=== PATIENT | female | born 1995 | race Caucasian/White ===

== ENCOUNTER 2020-09-18 14:46 | Emergency (ER) | payer OTHER ==
[~2020-09-18] VITALS: Ht 165.1 cm; Wt 61.4 kg
[2020-09-18 17:52] LABS: HEMATOCRIT 41.4 % (36.0-47.0); HEMOGLOBIN 13.9 g/dl (12.0-15.5); MEAN CORPUSCULAR HEMOGLOBIN 29.1 pg (27.0-33.0); MEAN CORPUSCULAR HGB CONC 33.6 g/dl (32.0-36.5); MEAN CORPUSCULAR VOLUME 86.8 fl (80.0-96.0); PLATELET COUNT, AUTOMATED 355 10^3/uL (150-450); RED BLOOD COUNT 4.77 10^6/uL (4.00-5.40); WHITE BLOOD COUNT 7.5 10^3/uL (4.0-10.0)
[2020-09-18 18:15] LABS: HCG, SERUM QUALITATIVE NEGATIVE (NEGATIVE)
[2020-09-18 18:25] LABS: ACETAMINOPHEN LEVEL < 2.0 UG/ML (10.0-30.0); ALBUMIN 3.9 GM/DL (3.2-5.2); ALT/SGPT 23 U/L (12-78); BILIRUBIN,DIRECT 0.4 MG/DL (0.0-0.2); BLOOD UREA NITROGEN 9 MG/DL (7-18); CALCIUM LEVEL 9.5 MG/DL (8.5-10.1); CARBON DIOXIDE LEVEL 27 MEQ/L (21-32); CHLORIDE LEVEL 102 MEQ/L (98-107); ETHYL ALCOHOL (ETHANOL) < 0.003 % (0.000-0.010); GLOMERULAR FILTRATION RATE > 60.0 (>60); GLUCOSE, FASTING 80 MG/DL (70-100); POTASSIUM SERUM 4.2 MEQ/L (3.5-5.1); SALICYLATE LEVEL < 1.7 MG/DL (5.0-30.0); SODIUM LEVEL 137 MEQ/L (136-145); TOTAL PROTEIN 7.2 GM/DL (6.4-8.2)
[2020-09-18 19:23] LABS: AMPHETAMINES LEVEL URINE NEGATIVE (NEGATIVE); BARBITURATES URINE NEGATIVE (NEGATIVE); BENZODIAZEPINES URINE NEGATIVE (NEGATIVE); CANNABINOIDS URINE NEGATIVE (NEGATIVE); COCAINE METABOLITE URINE NEGATIVE (NEGATIVE); METHADONE URINE NEGATIVE (NEGATIVE); OPIATES URINE NEGATIVE (NEGATIVE); PHENCYCLIDINE URINE NEGATIVE (NEGATIVE)
[2020-09-19 15:39] LABS: RSV AMPLIFICATION NEGATIVE (NEGATIVE)
[2020-09-20 17:36] VITALS: BP 117/59
--- NOTE | 2020-09-20 19:43 | ECGEPIP ---
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
== END 2020-09-20 17:40 | disposition short-term general hospital (02) ==
LOC: M ED 14:46
DX: F32.9 Major depressive disorder, single episode, unspecified (principal); R45.851 Suicidal ideations; F17.200 Nicotine dependence, unspecified, uncomplicated; F17.290 Nicotine dependence, other tobacco product, uncomplicated

== ENCOUNTER 2020-10-30 08:18 | Inpatient (IN) | payer OTHER ==
[2020-10-30] VITALS (40 sets, daily range): BP systolic 71–121; BP diastolic 38–66
[~2020-10-30] VITALS: Ht 165.1 cm; Wt 61.7 kg
[2020-10-30] MEDS ORDERED: SUCCINYLCHOLINE INJ 200 MG/10 ML VIAL (J0330) IV ONE (08:45)
[2020-10-30] MEDS ORDERED: ETOMIDATE INJ 20MG/10ML VIAL IV ONE (08:45)
[2020-10-30] MEDS ORDERED: propofoL 1,000 MG in IV 1 EA IV SCH (08:45)
[2020-10-30] MEDS ORDERED: CHARCOAL ACTIVATED LIQUID 25 GM/120 ML BTL NG ONE (08:45)
[2020-10-30] MEDS ORDERED: ROCURONIUM BROMIDE 50 MG/5 ML VIAL IV ONE (08:45)
[2020-10-30] MEDS ORDERED: NS 1,000 ML IV SCH (09:00)
[2020-10-30] MEDS: MIDAZOLAM 5MG/ML 1ML VIAL (J2250 PER 1MG) IV PRN ×2 (09:22→11:00)
--- NOTE | 2020-10-30 09:23 | REP ---
INDICATION: POST INTUBATION TUBE PLACEMENT. COMPARISON: None. TECHNIQUE: Single portable AP view of the chest was performed. FINDINGS: There is no acute infiltrate. The heart and mediastinum are unremarkable. Endotracheal tube tip is 3.3 cm above the garo. Nasogastric tube is visualized, the side port is in the fundus of the stomach. IMPRESSION: No acute pulmonary disease.Endotracheal tube and nasogastric tube as above. <Electronically signed by Lino Cruz > 10/30/20 [id number]
[2020-10-30 09:30] LABS: BASO # 0.1 10^3/uL (0.0-0.2); BASO % 0.4 % (0.0-1.0); EOS % 0.1 % (0.0-3.0); HEMATOCRIT 39.9 % (36.0-47.0); HEMOGLOBIN 13.2 g/dl (12.0-15.5); LYMPH # 3.3 10^3/uL (1.5-5.0); LYMPH % 11.3 % (24.0-44.0); MEAN CORPUSCULAR HEMOGLOBIN 29.1 pg (27.0-33.0); MEAN CORPUSCULAR HGB CONC 33.1 g/dl (32.0-36.5); MEAN CORPUSCULAR VOLUME 87.9 fl (80.0-96.0); MONO # 1.4 10^3/uL (0.0-0.8); MONO % 4.9 % (2.0-8.0); NEUTROPHILS % 82.4 % (36.0-66.0); PLATELET COUNT, AUTOMATED 444 10^3/uL (150-450); RED BLOOD COUNT 4.54 10^6/uL (4.00-5.40); WHITE BLOOD COUNT 29.1 10^3/uL (4.0-10.0)
[2020-10-30] MEDS ORDERED: REFRIGERATOR IV KEYS XX PRN (09:30)
[2020-10-30] MEDS ORDERED: MED REC COMMENT (09:39)
[2020-10-30] MEDS ORDERED: LEXA1TAB PO (09:39)
[2020-10-30] MEDS ORDERED: HYDR-643 PO (09:39)
[2020-10-30] MEDS ORDERED: YAZ1TAB PO (09:39)
[2020-10-30] MEDS ORDERED: TRAZ-252 PO (09:39)
[2020-10-30 09:53] LABS: HCG, SERUM QUALITATIVE NEGATIVE (NEGATIVE)
[2020-10-30 09:54] LABS: AMPHETAMINES LEVEL URINE NEGATIVE (NEGATIVE); BARBITURATES URINE NEGATIVE (NEGATIVE); BENZODIAZEPINES URINE NEGATIVE (NEGATIVE); CANNABINOIDS URINE NEGATIVE (NEGATIVE); COCAINE METABOLITE URINE NEGATIVE (NEGATIVE); METHADONE URINE NEGATIVE (NEGATIVE); OPIATES URINE NEGATIVE (NEGATIVE); PHENCYCLIDINE URINE NEGATIVE (NEGATIVE)
[2020-10-30 10:00] LABS: RSV AMPLIFICATION NEGATIVE (NEGATIVE)
[2020-10-30 10:01] LABS: ACETAMINOPHEN LEVEL 6.2 UG/ML (10.0-30.0); ALT/SGPT 16 U/L (12-78); BILIRUBIN,DIRECT < 0.1 MG/DL (0.0-0.2); BILIRUBIN,TOTAL 1.4 MG/DL (0.2-1.0); BLOOD UREA NITROGEN 9 MG/DL (7-18); CALCIUM LEVEL 8.1 MG/DL (8.5-10.1); CARBON DIOXIDE LEVEL 24 MEQ/L (21-32); CHLORIDE LEVEL 109 MEQ/L (98-107); CPK CREATINE PHOSPHOKINASE 70 U/L (26-192); CREATININE FOR GFR 1.16 MG/DL (0.55-1.30); ETHYL ALCOHOL (ETHANOL) 0.187 % (0.000-0.010); GLOMERULAR FILTRATION RATE > 60.0 (>60); GLUCOSE, FASTING 157 MG/DL (70-100); POTASSIUM SERUM 3.8 MEQ/L (3.5-5.1); SALICYLATE LEVEL < 1.7 MG/DL (5.0-30.0); SODIUM LEVEL 146 MEQ/L (136-145); TOTAL PROTEIN 6.4 GM/DL (6.4-8.2)
[2020-10-30 10:25] LABS: ABG BASE EXCESS -7.7 (-2.0-2.0); ABG HCO3 16.5 MEQ/L (22.0-26.0); ABG PARTIAL PRESSURE CO2 30.1 mmHg (35.0-45.0); ABG PARTIAL PRESSURE O2 191.7 mmHg (75.0-100.0); ABG STANDARD HCO3 18.3 MEQ/L (22.0-26.0); ABG TOTAL CO2 17.5 MEQ/L (22.0-29.0); ABG pH (ARTERIAL) 7.358 UNITS (7.350-7.450)
[2020-10-30] MEDS: D5W/LR 1,000 ML IV SCH ×2 (10:25→17:57)
[2020-10-30] MEDS: MIDAZOLAM HCL 100 MG in D5W 80 ML IV SCH (10:27)
[2020-10-30 11:39] LABS: PROLACTIN 133.6 NG/ML
[2020-10-30] MEDS ORDERED: MIDAZOLAM INJ 2MG/2ML VIAL (J2250 PER 1MG) IV PRN (12:35)
[2020-10-30] MEDS ORDERED: AMPICILLIN SOD/SULBACTAM SOD 1.5 GM in D5W MINI-BAG PLUS 50 ML IV SCH (13:10)
[2020-10-30] MEDS: CHLORHEXIDINE GLUCONATE 0.12 % 15ML UDC (PERIDEX ORAL RINSE) MT SCH ×2 (13:53→20:46)
[2020-10-30] MEDS: ENOXAPARIN 40MG/0.4ML SYRINGE (J1650 PER 10MG) SC SCH (13:53)
[2020-10-30] MEDS: PANTOPRAZOLE 40MG VIAL (C9113 PER 1) IV SCH (13:53)
[2020-10-30] MEDS ORDERED: NS 1,000 ML IV ONE (14:35)
[2020-10-30] MEDS ORDERED: MAG SULF 1GM/100ML (MAG RUN) 1 GM in IV 1 EA IV ONE ×2 (17:00→20:00)
--- NOTE | 2020-10-30 18:22 | REPVR ---
PROCEDURE INFORMATION: Exam: CT Head Without Contrast Exam date and time: 10/30/2020 5:37 PM Age: 25 years old Clinical indication: Altered mental status/memory loss; Additional info: Altered metnal stauts TECHNIQUE: Imaging protocol: Computed tomography of the head without contrast. Axial and coronal reformatted images were created and reviewed. Radiation optimization: All CT scans at this facility use at least one of these dose optimization techniques: automated exposure control; mA and/or kV adjustment per patient size (includes targeted exams where dose is matched to clinical indication); or iterative reconstruction. COMPARISON: No relevant prior studies available. FINDINGS: Brain: No CT evidence of acute intracranial hemorrhage or acute territorial infarction. No significant mass effect or midline shift. Basal cisterns patent. Cerebral ventricles: Normal in size and configuration. Paranasal sinuses: Mild ethmoid and right maxillary sinus mucosal thickening. Dependent fluid in the left maxillary sinus. Minimal dependent fluid in the sphenoid sinuses. Mastoid air cells: Grossly unremarkable. Bones/joints: No acute osseous abnormality. Soft tissues: Grossly unremarkable. IMPRESSION: 1. No CT evidence of acute intracranial pathology. 2. Additional findings, as above. Electronically signed by: Emery Merlos On 10/30/2020 18:22:23 PM
--- NOTE | 2020-10-30 18:25 | REPVR ---
PROCEDURE INFORMATION: Exam: CT Cervical Spine Without Contrast Exam date and time: 10/30/2020 5:37 PM Age: 25 years old Clinical indication: Other: AMS; Additional info: Altered metnal stauts TECHNIQUE: Imaging protocol: Computed tomography images of the cervical spine without contrast. Axial, coronal and sagittal reformatted images were created and reviewed. Radiation optimization: All CT scans at this facility use at least one of these dose optimization techniques: automated exposure control; mA and/or kV adjustment per patient size (includes targeted exams where dose is matched to clinical indication); or iterative reconstruction. COMPARISON: CO PORTABLE CHEST X-RAY 10/30/2020 9:01 AM FINDINGS: Bones/joints: Slight reversal of the normal cervical lordosis. No CT evidence of acute fracture, dislocation or subluxation. Alignment anatomic. Vertebral body heights maintained. Discs/Spinal canal/Neural foramina: Intervertebral disc spaces preserved. No significant spinal canal or neural foraminal stenosis. Lungs: Grossly unremarkable. Soft tissues: Grossly unremarkable. IMPRESSION: 1. No CT evidence of acute cervical spine traumatic injury. 2. Additional findings, as above. Electronically signed by: Emery Merlos On 10/30/2020 18:25:27 PM
[2020-10-30] MEDS: AMPICILLIN SOD/SULBACTAM SOD 3 GM in D5W MINI-BAG PLUS 100 ML IV SCH ×2 (18:35→22:12)
[2020-10-30 18:50] LABS: INR 1.24; PROTHROMBIN TIME 15.9 SECONDS (12.5-14.3)
[2020-10-30] MEDS ORDERED: NS 250 ML IV ONE (18:55)
[2020-10-30 19:26] LABS: ACETAMINOPHEN LEVEL 6.8 UG/ML (10.0-30.0); ALBUMIN 3.2 GM/DL (3.2-5.2); ALT/SGPT 15 U/L (12-78); BILIRUBIN,TOTAL 2.7 MG/DL (0.2-1.0); BLOOD UREA NITROGEN 8 MG/DL (7-18); CALCIUM LEVEL 7.3 MG/DL (8.5-10.1); CARBON DIOXIDE LEVEL 21 MEQ/L (21-32); CHLORIDE LEVEL 116 MEQ/L (98-107); CPK CREATINE PHOSPHOKINASE 75 U/L (26-192); CREATININE FOR GFR 0.92 MG/DL (0.55-1.30); GLOMERULAR FILTRATION RATE > 60.0 (>60); GLUCOSE, FASTING 149 MG/DL (70-100); MAGNESIUM LEVEL 1.7 MG/DL (1.8-2.4); PHOSPHORUS LEVEL 2.3 MG/DL (2.5-4.9); POTASSIUM SERUM 3.9 MEQ/L (3.5-5.1); SODIUM LEVEL 146 MEQ/L (136-145); TOTAL PROTEIN 5.2 GM/DL (6.4-8.2)
--- NOTE | 2020-10-30 21:12 | ECGEPIP ---
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
--- NOTE | 2020-10-30 22:05 | HPE ---
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 ER for attempted suicide with drug overdose. Patient was recently prescribed new medications including trazadone and hydroxzyzine to take on top of her Escitalopram for better control of her anxiety and depression. This morning, patient did not show up to her morning PT on [place] and a fellow officer was sent to check on her but could not open her door and thereafter the Fire department was called to the scene to get access inside her apartment. She was found down laying in her own vomitus with empty pill bottles, as well as an alcohol bottle next to her. On arrival to the ER, she was encephalopathic, tachycardic and severely agitated, but was able to maintain a good blood pressure initially. Her pill bottles included trazadone (7 days worth) and hydroxyzine (21 pills total), and Escitalopram, all of which were empty. The tylenol bottle, however, was relatively full. Her initial Utox showed elevated ethyl alcohol and acetaminophen level of 6.2 and EKG shows a prolonged QTc interval. Poison control was called and recommended activated charcoal and 2g Mg sulfate, but the latter was not received. Patient became more agitated, had sluggish and constricted pupils, and her breathing became irregular and susequently intubated for acute respiratory failure and was started on propofol for sedation, intially at 14mcg but was titrated up to properly sedate her. She did experience hypotension thereafter with a low of SBP 80. She was given 2L NS boluses. REVIEW OF SYSTEMS: Unobtainable due to intubation status. PAST MEDICAL HISTORY: 1. Major depression with a history of suicide attempt. 2. Anxiety. PAST SURGICAL HISTORY: Unobtainable due to intubation status SOCIAL HISTORY: Unobtainable due to intubation status FAMILY HISTORY:Unobtainable due to intubation status HOME MEDICATIONS: 1. Escitalopram 10 mg p.o. daily. 2. Hydroxyzine 10 mg p.o. t.i.d. p.r.n. for anxiety. 3. Trazodone 50 mg p.o. q. h.s. 4. Ethinylestradiol/drospirenone. PHYSICAL EXAMINATION: VITAL SIGNS: Temperature 98.8, blood pressure 118/61, MAP of 80. She is satting 97% on 100% FiO2 on vent mode volume assist control. ABG: PH 7.358/30.1/191.7. GENERAL: The patient is a thin adult female resting comfortably in bed without any acute distress. She is mechanically ventilated and sedated on propofol. She does have residual vomitus seen in her hair and around her lips. NEUROLOGIC: No signs of tremor, fasciculations, or seizure activity. She does have spontaneous eye movements. HEENT: Head is atraumatic. Pupils are constricted, but equal and reactive to light. ET tube is 22.5 cm at the lip. OG tube in place draining bilious fluid. NECK: Supple with no tracheal deviation palpated. No significant thyromegaly or adenopathy appreciated. I was unable to appreciate JVD. CARDIAC: Sinus tachycardia. No murmurs, gallops, or rubs. No pedal edema appreciated. PULMONARY: The patient does have coarse ventilator sounds with symmetric chest expansion. I did not appreciate any rales, rhonchi, or wheezing. No retractions or accessory muscle use. ABDOMEN: Soft, nontender, and nondistended with normal bowel sounds. No significant palpitations masses or hernia. No organomegaly. EXTREMITIES: No bruising, joint effusions, fractures, or clubbing appreciated. Peripheral pulses are present 2+. LABORATORY DATA: POC glucose 162, sodium 145, potassium 3.5, chloride 104, BUN 8, creatinine 1.4, ionized calcium 4.0. POC pH 7.33/38.2/191. Repeat ABG shows pH 7.36/30.1/191.7. White count 29.1, H&H 13.2/39.9, platelets 444,000. Urine toxicology shows acetaminophen level initial 6.2. Ethyl alcohol level of 0.19. Respiratory panel within normal limits. IMAGING DATA: Chest x-ray with no acute pulmonary disease. ET tube 3.3 cm above the garo and OG tube is visualized in the fundus of the stomach. 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 ER for again attempted suicide with drug overdose. Patient was recently prescribed new medications including trazadone and hydroxzyzine to take on top of her Escitalopram for better control of her anxiety and depression. She was found down laying in her own vomitus with empty pill bottles (including trazadone, hydroxyzine, escitalopram), as well as an alcohol bottle next to her. Her initial Utox showed elevated ethyl alcohol and abnormal acetaminophen level of 6.2 and initial EKG showed prolonged QTc interval and poison control was contacted and recommended activated charcoal and mag sulfate. Patient also had altered mental status, agitation and acute respiratory failure requiring intubation and sedation with propofol, initially at 14mcg but had to be increased to properly sedate her. She did experience briefly episodes of hypotension shortly after being sedated and along with a mild JAMIE, she was given 2 L boluses of NS. Critical care was called to admit patient to the ICU for further mgmt of her care. NEUROLOGIC: The patient is mechanically ventilated and sedated, initially on propofol but experienced hypotension. Will D/C propofol and start versed gtt and as PRN for sedation. No signs of tremors, fasciculation, or seizures activities. Her pupils are constricted but symmetric and reactive to light. Her initial lactate is high and due to being found down and altered, will order a prolactin level to r/o generalized seizures. She was found down in her own vomitus, but it was unclear if patient hit her head or not. Will order for a CT head and C spine w/o contrast to r/o intracranial bleed and fractures. Will monitor for other complications such as serotonin syndrome in the setting of drug overdose with an SSRI. There is no muscle rigidity with passive range of motion testing. We will continue to monitor closely and will order cyproheptadine if patient develops serotonin syndrome. Will place her on seizure precautions CARDIAC: Patient was initially normotensive but experienced episodes of hypotension after sedation with propofol, intially at 14mcg but increased to properly sedate her. Currently, s/p 2L boluses of NS then will switch to to D5 LR for maintenance fluid. Will D/C propofol and start Versed gtt and as PRN for sedation. We will continue to monitor her blood pressure closely and give NS boluses if needed. Also noted on her Initial EKG was a prolonged QTc level of 548 in the setting of overdosing on QT prolonging drugs (Escitalopram, Hydroxyzine and Trazadone). Will order for q4h serial EKG monitoring her QTc levels and if levels continue to be in the high 500s, will change to q2h serial EKG. As per recommendation from poison control, will give 1g of mg sulfate to prevent ventricular arrhythmia and/or supraventricular arrhythmias. Will avoid other QT prolonging drugs including antibiotics (macrolides, flouroquinolones) and antiemetics (zofran). PULMONARY: Patient was found in her own vomitus and there's a high clinical suspicion for aspiration and acute aspiration pneumonitis. She's been afebrile; however, our threshold to start prophlaytic antibiotic for acute aspiration pneumonitis with the intent of preventing development of aspiration pneumonia is low and we will start her on on it if her temperature reaches > 99.5 and/or drops below 96F. Chest radiograph did not show any acute findings and her blood gas does not show acidosis. Will continue with vent bundle care with chlorhexidine mouth wash and head of bed elevated > 30 deg and daily ABGs and CXR while intubated. She was initially on Volume AC mode and switched to PRVC with TV 16 PEEP 5 respiration of 16 and FIO2 35 % saturating at 97%. Her ET tube is in appropriate position at 22.5 cm at the lip and in appropriate position on radiograph. Her OG tube is also in the correct position coursing below the left hemidiaphragm. NEPHROLOGY: : Pt initially had an JAMIE that has now resolved. She's S/p 2L NS boluses in ED and continued on D5 LR for maintenance. We will continue to monitor her electrolytes with a repeat BMP today as well as a Mg and phosp, CPK level. Will replete as necessary. She has a guzman in place and has good urine output. INFECTIOUS DISEASE: Patient was afebrile. She was found in her own vomitus and she also vomited while in the ED and there's a high suspicion for aspiration and developed acute aspiration pneumonitis, although initial Chest radiograph did not show any abnormalities. Will continue to monitor and add antibotic coverage as mentioned above if temp > 99.5 and/or below 96F. She had an elevated lactate, which could be 2/2 to drug overdose or a component of sepsis. will trend her lactate levels and will order blood cultures and sputum gram stain and culture as well as urine with reflex to culture. Guzman in place draining urine free of pus and/or debris. OG tube in place to low intermittent sunctioning. GASTROENTEROLOGY/ENDOCRINE: The patient has hx of suicidal ideation by drug overdose. She ingested trazadone hydroxyzine, escitalopram and tylenol along with alcohol. Initial utox shows elevated ethyl etoh and abnormal acetaminophen level. Will repeat a 4 hour acetaminophen level and closely monitor her liver function. Will order coags. Continue Protonix for GI prophlyaxis while intubated. Her blood sugar is on higher side will monitor and add SSI if needed DEEP VEIN THROMBOSIS (DVT) PROPHYLAXIS: Lovenox. CODE STATUS: FULL CODE. Total critical care time spent not including any procedures approx 1 hr and 55 mins I, Mora Mackey, have conducted an independent examination and history of the patient and agree with the plan as detailed by the resident above. FRANKOD
--- NOTE | 2020-10-30 22:38 | ECGEPIP ---
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 No remarkable changes but slower heart rate Electronically Signed on 10-30-2020 22:38:05 EDT by Linus Liriano
--- NOTE | 2020-10-30 22:42 | ECGEPIP ---
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
[2020-10-30] MEDS ORDERED: POTASSIUM PHOSPHATE INJ 18 MMOL in D5W 250 ML IV ONE (23:00)
[2020-10-31] VITALS (28 sets, daily range): BP systolic 86–125; BP diastolic 49–80
[2020-10-31] MEDS: AMPICILLIN SOD/SULBACTAM SOD 3 GM in D5W MINI-BAG PLUS 100 ML IV SCH ×4 (04:11→21:14)
[2020-10-31] MEDS: D5W/LR 1,000 ML IV SCH (04:11)
[2020-10-31 05:17] LABS: BASO # 0.1 10^3/uL (0.0-0.2); BASO % 0.3 % (0.0-1.0); EOS % 0.1 % (0.0-3.0); HEMOGLOBIN 10.6 g/dl (12.0-15.5); LYMPH # 2.5 10^3/uL (1.5-5.0); LYMPH % 14.2 % (24.0-44.0); MEAN CORPUSCULAR HEMOGLOBIN 28.6 pg (27.0-33.0); MEAN CORPUSCULAR HGB CONC 33.1 g/dl (32.0-36.5); MEAN CORPUSCULAR VOLUME 86.3 fl (80.0-96.0); MONO # 0.9 10^3/uL (0.0-0.8); MONO % 5.2 % (2.0-8.0); NEUTROPHILS # 13.9 10^3/uL (1.5-8.5); NEUTROPHILS % 79.8 % (36.0-66.0); RED BLOOD COUNT 3.71 10^6/uL (4.00-5.40); WHITE BLOOD COUNT 17.4 10^3/uL (4.0-10.0)
[2020-10-31 05:31] LABS: ABG BASE EXCESS -1.4 (-2.0-2.0); ABG HCO3 21.8 MEQ/L (22.0-26.0); ABG PARTIAL PRESSURE CO2 31.6 mmHg (35.0-45.0); ABG PARTIAL PRESSURE O2 155.4 mmHg (75.0-100.0); ABG STANDARD HCO3 23.4 MEQ/L (22.0-26.0); ABG TOTAL CO2 22.8 MEQ/L (22.0-29.0); ABG pH (ARTERIAL) 7.457 UNITS (7.350-7.450)
[2020-10-31 05:40] LABS: ALT/SGPT 17 U/L (12-78); BILIRUBIN,TOTAL 1.7 MG/DL (0.2-1.0); BLOOD UREA NITROGEN 6 MG/DL (7-18); CALCIUM LEVEL 7.7 MG/DL (8.5-10.1); CARBON DIOXIDE LEVEL 24 MEQ/L (21-32); CHLORIDE LEVEL 113 MEQ/L (98-107); CREATININE FOR GFR 0.92 MG/DL (0.55-1.30); GLOMERULAR FILTRATION RATE > 60.0 (>60); GLUCOSE, FASTING 144 MG/DL (70-100); MAGNESIUM LEVEL 2.4 MG/DL (1.8-2.4); PHOSPHORUS LEVEL 2.8 MG/DL (2.5-4.9); PLATELET COUNT, AUTOMATED 278 10^3/uL (150-450); POTASSIUM SERUM 3.7 MEQ/L (3.5-5.1); SODIUM LEVEL 145 MEQ/L (136-145); TOTAL PROTEIN 5.1 GM/DL (6.4-8.2)
[2020-10-31] MEDS: MIDAZOLAM HCL 100 MG in D5W 80 ML IV SCH (07:45)
--- NOTE | 2020-10-31 08:11 | REP ---
INDICATION: intubated. COMPARISON: Comparison portable chest x-ray October 30, 2020. TECHNIQUE: Portable upright AP chest radiograph. FINDINGS: Endotracheal tube is seen in good position just at the level of the medial clavicles. NG tube enters the left upper quadrant. Monitoring electrodes and oxygen delivery tubing are seen. The lungs are well inflated and free of infiltrate. The pleural angles are sharp. Pulmonary vasculature is not increased.. IMPRESSION: Endotracheal and nasogastric tubes in good position. No acute cardiopulmonary abnormality.. <Electronically signed by Aquilino Hernandez > 10/31/20 0839
[2020-10-31 08:23] LABS: BILIRUBIN,DIRECT 0.1 MG/DL (0.0-0.2)
[2020-10-31] MEDS: PANTOPRAZOLE 40MG VIAL (C9113 PER 1) IV SCH (09:28)
[2020-10-31] MEDS: ENOXAPARIN 40MG/0.4ML SYRINGE (J1650 PER 10MG) SC SCH (09:28)
[2020-10-31] MEDS: CHLORHEXIDINE GLUCONATE 0.12 % 15ML UDC (PERIDEX ORAL RINSE) MT SCH (09:28)
--- NOTE | 2020-10-31 10:51 | CCN ---
CRITICAL CARE NOTE DATE: 10/31/2020 SUBJECTIVE: The patient was seen and examined this morning during bedside rounds. Yesterday afternoon, the patient had a few episodes of hypotension. She was given additional normal saline fluid bolus with appropriate response in her blood pressure. Her sedation was also weaned down as she was very well sedated on the versed drip and there was further improvement in her blood pressure. She did not require any vasopressor administration. Yesterday evening, the patient was also started on free water flushes via her OG tube and she was repleted with additional electrolytes. Overnight, there were no acute events. The patient did have hypothermia yesterday earlier and she was placed on a Ketty Hugger. Later on in the afternoon, the patient's temperature improved and she was off any warming blankets. This morning on sedation, the patient was responsive and following commands appropriately although still drowsy. She denies any pain currently. She has not had any evidence of any seizure activity overnight. She did not require any of her p.r.n. versed overnight. OBJECTIVE: Vitals: Temperature 98.6, pulse 67, respirations 17, blood pressure 103/66. O2 sat 97% on 30% FiO2, in 2.3 liters, out 1.5 liters. General: The patient is lying in bed intubated and on sedation. She is arousable and follows commands appropriately although still drowsy. No evidence of tremors and seizure activity. HEENT: Normocephalic, atraumatic. Pupils are responsive to light bilaterally. There is an ET tube and an OG tube in place. Neck: Supple. Trachea is midline. There is no palpable cervical adenopathy. No JVD noted. Cardiac: Regular rate and rhythm. Normal S-1, S-2. No appreciable murmurs. Pulmonary: Coarse ventilator breath sounds bilaterally with no significant wheezing, rales or rhonchi. Abdomen: Soft, nontender, nondistended. Positive bowel sounds present. Extremities: There is no significant edema in the bilateral lower extremities. Pulses are present. No obvious injuries. LABS: WBC trending down to 17.4, hemoglobin trending down 10.6. Glucose is 278. Chemistry: Sodium is 145, potassium 3.7. Chloride is 113. Bicarb is 24. BUN 6, creatinine 0.92. Glucose is 144. Calcium is 7.7. Magnesium is 2.4. T bili trending down to 1.7. Phos is 2.8. AST 18, ALT 17. Lactic acid trending down to 1.7. Prolactin level was 133.6. ABG: pH 7.457, pCO2 of 31.6, pO2 of 150.4. IMAGING: Chest x-ray this morning shows ET tube and OG tube in good position. There are no focal opacities or infiltrates. CT of head yesterday showed no acute intracranial pathology. CT of the cervical spine showed no evidence of traumatic injury. ASSESSMENT AND PLAN: Miss Case is a 25-year-old female with a history of depression and recent suicide attempt who presented with intentional drug overdose and suicide attempt. The patient was found to be encephalopathic as well as having obvious vomiting and agitation. She was intubated for acute respiratory failure and airway protection and transferred to the ICU for further management. 1. Neurologic. The patient has history of depression and was on medications for anxiety and depression which she had intentionally overdosed on in an attempted suicide. There was concern for a possible seizure with elevated lactate and a prolactin level was drawn which was elevated. Suspect she had a seizure in the setting of her acute intoxication. Her alcohol level was also positive on admission as well. She has not had any further evidence of seizure activity so we will continue to monitor with seizure precautions. Patient's head CT and C-spine did not show any evidence of acute bleed or fractures. Patient was on an SSRI. She does not appear to have serotonin syndrome currently but would avoid medications that contribute to serotonin syndrome. The patient was on versed for sedation as she had hypotension with propofol. Her sedation is on hold today for a weaning trial. With her suicide attempt, she will need to be on a one-to-one after she is extubated and psychiatry will need to be consulted. 2. Cardiac. Patient had episodes of hypotension yesterday likely in the setting of her sedation. With fluid resuscitation and change to versed, her blood pressure improved and she did not require any need for vasopressors. Patient did have some QTC prolongation in the setting of her acute intoxication. Patient did overdose on Escitalopram, hydroxyzine and trazodone. She otherwise has not had any acute events noted overnight on telemetry. We will continue monitoring her EKGS and will change to daily. Patient was given magnesium repletion yesterday and will continue to maintain electrolytes for magnesium above 2 and will continue to monitor and replete other electrolytes as well. We will avoid other QTC prolonging drugs. 3. Pulmonary. Patient with encephalopathy as well as vomiting. There was a high suspicion for aspiration. She was intubated and placed on mechanical ventilation for airway protection. Patient was hypothermic yesterday and with her leukocytosis, there was concern for possible aspiration pneumonia. Her CXR did not show any focal opacity but as they are portable films are unable to see very bases of lungs behind diaphragm. She was started on broad spectrum antibiotics with Unasyn. Her temperature improved and she has been off the Ketty Hugger overnight. Her leukocytosis has also improved. We will continue with Unasyn and can likely deescalate in the next day or two with clinical improvement to oral antibiotics to complete a 5 to 7 day course for aspiration pneumonia. We will continue with vent bundle care and chlorhexidine mouthwash with head of bed elevation and daily ABGs and check saturations while intubated. The patient will be placed on weaning trial for potential extubation today. She is somewhat still sedated and was apneic on pressor support. We will place her on SIMV and continue to assess for her appropriateness for extubation today. The patient did have lactic acidosis initially possibly secondary to seizure activity. With IV fluids, her lactic acid did trend down to normal. 4. Nephrology. The patient had JAMIE initially which improved with IV fluids. She was receiving D5 LR for maintenance as well as receiving free water flushes to her OG tube as she had a degree of hyperchloremia secondary to her normal saline fluids that she received. Patient's chloride has improved and her lactic acid has also trended down. Her renal function has also improved. Will DC IV fluids pending her extubation and would likely be able to tolerate p.o. once extubated. We will continue monitoring urine output and ins and outs. 5. GI/endocrine. Patient received activated charcoal in the ED for her acute drug overdose and ingestion. She was started on free water flushes overnight which she has been tolerating. If patient is not extubated today, I would start her on tube feeds. Patient did have trending Tylenol levels which were negative. Her liver function tests have been normal except for mild elevation in bilirubin which is also trending down. We will continue to monitor her finger stick glucose and start sliding scale coverage as needed. GI prophylaxis while intubated. DVT prophylaxis: Lovenox. Code Status: FULL CODE. Total critical care time spent not including procedures approximately 50 minutes. FRANKOD
[2020-10-31] MEDS ORDERED: POTASSIUM PHOSPHATE INJ 20 MMOL in D5W 250 ML IV ONE (11:00)
--- NOTE | 2020-10-31 17:42 | IPNPDOC ---
Date Seen The patient was seen on 10/31/20. Progress Note SUBJECTIVE: Ms. Monroe appears groggy this morning when I visited her in the ICU. She had been extubated 45 minutes prior to my visit and appeared tired. She is arousable to noise and opens her eyes when I say her name. She is able to answer a few of my questions but it is difficult to appreciate what she is saying. She has a sitter present in the room with her and she does not appear to be in any acute distress. I was able to attain a ROS via yes/no answers. She denies chest pain, shortness of breath, and abdominal pain. She told me that she was hungry when I asked her if she had an appetite. She has an oxygen saturation of 100% via aerosol mask with an Fi02 of 40. She is being transferred to the PCU from the ICU. OBJECTIVE PHYSICAL EXAMINATION: VITAL SIGNS: Please see below. GENERAL: Young adult female lying in bed in no acute distress. She is groggy but is able to follow simple commands HEENT: normocephalic, atraumatic, PERRLA, trachea is midline, mucous membranes are pink and moist, sclera non icteric. CARDIOVASCULAR: regular rate and rhythm, no murmurs, rubs, or gallops noted RESPIRATORY: Patient takes shallow breaths, no wheezes, rhonchi, or rales noted. ABDOMINAL: positive bowel sounds, soft, nontender to palpation in all four quadrants EXTREMITIES: no edema noted, capillary refill <2 seconds, no rashes or ulcerations. PSYCHOLOGICAL: patient is groggy but able to speak in short sentences LABORATORY DATA, IMAGING STUDIES, MICROBIOLOGY: Please see below. Chest x-ray 10/30/20: Impression: No acute pulmonary disease. Endotracheal tube and nasogastric tube as above. Cervical spine CT 10/30/20: Impression: 1. No CT evidence of acute cervical spine traumatic injury. 2. Additional findings, as above. Head CT 10/30/20: Impression: No CT evidence of acute intracranial pathology. Chest x-ray 10/31/20: Impression: Endotracheal and nasogastric tubes in good position. No acute cardiopulmonary abnormality. Echocardiogram: n/a DVT prophylaxis ordered?: Yes, continue lovenox ASSESSMENT AND PLAN: Ms. Monroe is a 25 year old female with pmhx anxiety, depression, and recent suicide attempt presented to the ED for suicide attempt with drug overdose. She was admitted to the ICU, intubated, and treated medically. PROBLEMS: #Intentional Drug overdose/ Suicide attempt -previous suicide attempt 09/18/20 -Positive ETOH level on admission-will keep on seizure precautions -Patient has history of depression and suicidal ideations -Will consult psych tomorrow when patient is more alert; she may qualify to be admitted to [facility] -Holding all psychiatric medications at this time -Continue one-on-one supervision #Suspected aspiration pneumonia -patient was found lying in vomitus -Elevated WBC 17.4 that is downtrending -Patient is afebrile -C/w Unasyn -Will likely transition to oral unasyn from IV in day or two. Patient should receive a total of 5-7 day course -chest x-ray results as above #Hypotension -Stable 111/70 -likely 2/2 to sedation with intubation -patient was given 2L fluid bolus in ICU with BP improvement #QT prolongation -likely 2/2 to acute intoxication with escitalopram, hydroxyzine, and trazodone while acutely intoxicated -c/w telemetry -c/w daily EKG monitoring -Holding all QT prolonging medications at this time. #Lactic acidosis -resolved, currently 1.7 -patient was given IV fluids #JAMIE -resolved, BUN: 6 Creatinine: 0.92 -will continue to monitor DVT prophylaxis: yes, continue lovenox DISPOSITION:Will continue to monitor patient for clinical improvement. She was extubated this morning. She was started on a liquid diet; will advance as tolerated. Will consult psychiatry tomorrow and continue patient on one-on-one. GME ATTESTATION My faculty preceptor for this patient encounter was physically present during the encounter and was fully available. All aspects of the patient interview, examination, medical decision making process, and medical care plan development were reviewed and approved by the faculty preceptor. The faculty preceptor is aware and concurs with the plan as stated in the body of this note and will attest to such by his/her cosignature. VS, I&O, 24H, Fishbone Vital Signs/I&O Vital Signs Date Time Temp Pulse Resp B/P (MAP) Pulse Ox O2 Delivery O2 Flow Rate FiO2 10/31/20 12:00 40 10/31/20 12:00 97.5 73 14 111/70 (84) 100 Aerosol Mask 10/30/20 12:25 15.0 I&O- Last 24 Hours up to 6 AM 10/31/20 06:00 Intake Total 4696.9 ml Output Total 2075 ml Balance 2621.9 ml Laboratory Data 24H LABS Laboratory Tests 2 10/30/20 18:16: Lactic Acid Level 1.6, Lactic Acid Followup at 4 Hours 1.7 10/30/20 18:17: Prothrombin Time 15.9H, Prothromb Time International Ratio 1.24, Activated Partial Thromboplast Time 20.0L, Anion Gap 9, Glomerular Filtration Rate > 60.0, Calcium Level 7.3L, Phosphorus Level 2.3L, Magnesium Level 1.7L, Total Bilirubin 2.7#H, Aspartate Amino Transf (AST/SGOT) 16, Alanine Aminotransferase (ALT/SGPT) 15, Alkaline Phosphatase 91, Total Creatine Kinase 75, Total Protein 5.2L, Albumin 3.2, Albumin/Globulin Ratio 1.6, Acetaminophen Level 6.8L 10/30/20 23:43: Bedside Glucose (Misc Panel) 149H 10/31/20 04:10: Urine Color YELLOW, Urine Appearance HAZY, Urine pH 5.0, Urine Specific [place] 1.034, Urine Protein 1+H, Urine Glucose (UA) NEGATIVE, Urine Ketones NEGATIVE, Urine Blood NEGATIVE, Urine Nitrite NEGATIVE, Urine Bilirubin 2+H, Urine Urobilinogen 2.0H, Urine Leukocyte Esterase 1+H, Urine WBC (Auto) 6H, Urine RBC (Auto) 3, Urine Hyaline Casts (Auto) 0, Urine Bacteria (Auto) NEGATIVE, Urine Squamous Epithelial Cells 1, Urine Sperm (Auto) 10/31/20 04:52: Immature Granulocyte % (Auto) 0.4, Neutrophils (%) (Auto) 79.8H, Lymphocytes (%) (Auto) 14.2L, Monocytes (%) (Auto) 5.2, Eosinophils (%) (Auto) 0.1, Basophils (%) (Auto) 0.3, Neutrophils # (Auto) 13.9H, Lymphocytes # (Auto) 2.5, Monocytes # (Auto) 0.9H, Eosinophils # (Auto) 0.0, Basophils # (Auto) 0.1, Nucleated Red Blood Cells % (auto) 0.0, Anion Gap 8, Glomerular Filtration Rate > 60.0, Calcium Level 7.7L, Phosphorus Level 2.8#, Magnesium Level 2.4, Total Bilirubin 1.7H, Direct Bilirubin 0.1, Aspartate Amino Transf (AST/SGOT) 18, Alanine Aminotransferase (ALT/SGPT) 17, Alkaline Phosphatase 87, Total Protein 5.1L, Albumin 3.0L, Albumin/Globulin Ratio 1.4 10/31/20 05:29: Blood Gas Bicarbonate Standard 23.4, Arterial Blood pH 7.457H, Arterial Blood Partial Pressure CO2 31.6L, Arterial Blood Partial Pressure O2 155.4H, Arterial Blood Total CO2 22.8, Arterial Blood HCO3 21.8L, Arterial Blood Base Excess - 1.4, Arterial Blood Oxygen Saturation 99.0 10/31/20 12:21: Bedside Glucose (Misc Panel) 58L 10/31/20 13:06: Bedside Glucose (Misc Panel) 92 CBC/BMP Laboratory Tests 10/30/20 18:17 10/31/20 04:52 Microbiology Microbiology 10/31/20 Urine Culture, Received Pending 10/30/20 Blood Culture, Received Pending 10/30/20 Blood Culture - Preliminary, Resulted No growth after 24 hours . All specim... GME ATTESTATION GME ATTESTATION My faculty preceptor for this patient encounter was physically present during the encounter and was fully available. All aspects of the patient interview, examination, medical decision making process, and medical care plan development were reviewed and approved by the faculty preceptor. The faculty preceptor is aware and concurs with the plan as stated in the body of this note and will attest to such by his/her cosignature. ATTENDING NOTE I, Shila Pierre MD, have independently examined this patient and performed my own physical exam, as well as reviewed the documentation and edited where necessary. I have discussed in detail with the resident / student the findings and plan of treatment as documented by the resident / student and edited their note. I agree with their findings and treatment plan and have edited their documentation. I will continue to follow the patient during this hospital stay. MALU MOFFETT DO Oct 31, 2020 17:42 SHILA PIERRE MD Nov 02, 2020 12:33
--- NOTE | 2020-10-31 23:16 | ECGEPIP ---
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 No remarkable changes but slower heart rate Electronically Signed on 10-31-2020 23:16:22 EDT by Linus Liriano
--- NOTE | 2020-10-31 23:19 | ECGEPIP ---
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 No remarkable changes Electronically Signed on 10-31-2020 23:19:22 EDT by Linus Liriano
--- NOTE | 2020-10-31 23:24 | ECGEPIP ---
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 No remarkable changes but QT interval is longer Electronically Signed on 10-31-2020 23:24:30 EDT by Linus Liriano
[2020-11-01] VITALS: BP 107/58
[2020-11-01] MEDS: AMPICILLIN SOD/SULBACTAM SOD 3 GM in D5W MINI-BAG PLUS 100 ML IV SCH ×2 (03:42→09:57)
[2020-11-01 04:00] VITALS: BP 91/58
[2020-11-01 04:34] LABS: BASO # 0.1 10^3/uL (0.0-0.2); BASO % 0.5 % (0.0-1.0); EOS # 0.1 10^3/uL (0.0-0.5); EOS % 0.9 % (0.0-3.0); HEMATOCRIT 33.2 % (36.0-47.0); HEMOGLOBIN 10.8 g/dl (12.0-15.5); LYMPH # 2.5 10^3/uL (1.5-5.0); LYMPH % 21.2 % (24.0-44.0); MEAN CORPUSCULAR HEMOGLOBIN 28.7 pg (27.0-33.0); MEAN CORPUSCULAR HGB CONC 32.5 g/dl (32.0-36.5); MEAN CORPUSCULAR VOLUME 88.3 fl (80.0-96.0); MONO # 0.7 10^3/uL (0.0-0.8); MONO % 6.2 % (2.0-8.0); NEUTROPHILS # 8.3 10^3/uL (1.5-8.5); NEUTROPHILS % 70.9 % (36.0-66.0); PLATELET COUNT, AUTOMATED 243 10^3/uL (150-450); RED BLOOD COUNT 3.76 10^6/uL (4.00-5.40); WHITE BLOOD COUNT 11.7 10^3/uL (4.0-10.0)
[2020-11-01 05:05] LABS: BLOOD UREA NITROGEN 5 MG/DL (7-18); CALCIUM LEVEL 7.6 MG/DL (8.5-10.1); CARBON DIOXIDE LEVEL 27 MEQ/L (21-32); CHLORIDE LEVEL 111 MEQ/L (98-107); CREATININE FOR GFR 0.87 MG/DL (0.55-1.30); GLOMERULAR FILTRATION RATE > 60.0 (>60); GLUCOSE, FASTING 99 MG/DL (70-100); POTASSIUM SERUM 3.9 MEQ/L (3.5-5.1); SODIUM LEVEL 142 MEQ/L (136-145)
[2020-11-01 05:06] LABS: ALBUMIN 2.8 GM/DL (3.2-5.2); ALT/SGPT 18 U/L (12-78); BILIRUBIN,TOTAL 0.5 MG/DL (0.2-1.0); MAGNESIUM LEVEL 2.2 MG/DL (1.8-2.4)
[2020-11-01 08:00] VITALS: BP 124/77
[2020-11-01] MEDS: ENOXAPARIN 40MG/0.4ML SYRINGE (J1650 PER 10MG) SC SCH (09:02)
[2020-11-01] MEDS: PANTOPRAZOLE 40MG VIAL (C9113 PER 1) IV SCH (09:02)
[2020-11-01 11:39] VITALS: BP 113/75
[2020-11-01 15:10] VITALS: BP 115/77
--- NOTE | 2020-11-01 16:17 | IPNPDOC ---
Date Seen The patient was seen on 11/01/20. Progress Note SUBJECTIVE: Ms. Monroe is a pleasant 25 year old female with pmhx of anxiety, depression, and suicidal attempts who presented to the ED for a suicide attempt via drug overdose. She was admitted to the ICU and intubated. 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 Her mother has been calling the ICU to check on her from out of state. Patient was extubated on 10/31/20 and downgraded to med surgery floor. Today Ms. Monroe is fully awake when I walked into the room. She is accompanied by two sitters who are with her for one-on-one observation. She is alert and oriented x 3 and is able to speak in audible full sentences. She is tolerating a clear liquid diet well and would like to eat solid foods for breakfast as she is hungry. She states that the guzman catheter is uncomfortable and she feels like she has to urinate but is unable to. We discussed her current mood and she states that she can't put into words how she feels but is no longer feeling "despair". She states that she ended up in the hospital because she felt like everything in her life (work, social, personaL) became too much to handle. She denies having any suicidal ideations at this time. It was explained to her that we would be consulting psychiatry today and she was okay with this decision. She did not have any other questions or concerns. She has an oxygen saturation of 96% on room air. OBJECTIVE PHYSICAL EXAMINATION: VITAL SIGNS: Please see below. GENERAL: Young female lying in bed in no acute distress HEENT: normocephalic, atraumatic, PERRLA, oropharynx is not erythematous, mucous membranes moist, trachea midline, no lymphadenopathy noted. CARDIOVASCULAR: regular rate and rhythm, no murmurs appreciated RESPIRATORY: equal inspiratory effort bilaterally, some crackles heard at lung bases, no rhonchi or wheezes noted ABDOMINAL: soft, positive bowel sounds, slight suprapubic tenderness to deep palpation (patient has to urinate and would like guzman catheter removed), no organomagly noted. EXTREMITIES: 2+ pulses bilaterally (radial, posterior tibial, dorsalis pedis), no edema appreciated, dragonfly tattoo visible on right forearm PSYCHOLOGICAL: mood appropriate, alert and oriented x 3 LABORATORY DATA, IMAGING STUDIES, MICROBIOLOGY: Please see below. Chest x-ray 10/30/20: Impression: No acute pulmonary disease. Endotracheal tube and nasogastric tube as above. Cervical spine CT 10/30/20: Impression: 1. No CT evidence of acute cervical spine traumatic injury. 2. Additional findings, as above. Head CT 10/30/20: Impression: No CT evidence of acute intracranial pathology. Chest x-ray 10/31/20: Impression: Endotracheal and nasogastric tubes in good position. No acute cardiopulmonary abnormality. Echocardiogram: n/a DVT prophylaxis ordered?: Yes continue lovenox ASSESSMENT AND PLAN: Ms. Monroe is a 25 year old female with pmhx anxiety, depression, and recent suicide attempt presented to the ED for suicide attempt with drug overdose. She was admitted to the ICU, intubated, and treated medically. PROBLEMS: #Intentional Drug overdose/ Suicide attempt -previous suicide attempt 09/18/20; Patient has history of depression, anxiety, and suicidal ideations -currently holding the medications that patient overdose on (escitalopram, hydroxyzine, and trazodone) -Patient states she was started on Trazadone and hydroxyzine about a month ago at a facility in [place]. -Continue one-on-one supervision -We consulted psychiatry, we appreciate Dr. Barragan's input on this patient -Patient may be transferred to inpatient mental health unit. #Suspected aspiration pneumonia -patient was found lying in vomitus and had to be intubated to protect airway -WBC is 11.7 today which is decreased from yesterday: 17.4 -Patient continues to be afebrile -d/c IV unasyn -started patient on oral Augmentin 875mg BID for two additional day for a total of 5 day of antibiotic coverage -Patient had some crackles noted in lung bases bilaterally #Hypotension -Stable 113/75 -likely 2/2 to sedation with propofol during intubation -patient is tolerating a regular diet and does not require maintenance fluids at this time. #QT prolongation -QT interval 473 today which is still prolonged but improved from yesterday -likely 2/2 to acute intoxication with escitalopram, hydroxyzine, and trazodone while acutely intoxicated -c/w daily EKG monitoring -Patient is not longer on telemetry, she has not had any episodes of v tach or torsades. -Holding all QT prolonging medications at this time. #Lactic acidosis -resolved, currently 1.7 -patient was given IV fluids #JAMIE -resolved, BUN: 5 Creatinine: 0.87 -will continue to monitor #DVT prophylaxis: continue lovenox DISPOSITION: Patient is clinically improving. She tolerated a regular diet today and is ambulating to the bathroom. Consulted psychiatry today and are awaiting their recommendations. This patient will likely be admitted to inpatient mental health. We appreciate Dr. Barragan's input on this patient. GME ATTESTATION My faculty preceptor for this patient encounter was physically present during the encounter and was fully available. All aspects of the patient interview, examination, medical decision making process, and medical care plan development were reviewed and approved by the faculty preceptor. The faculty preceptor is aware and concurs with the plan as stated in the body of this note and will attest to such by his/her cosignature. VS, I&O, 24H, Fishbone Vital Signs/I&O Vital Signs Date Time Temp Pulse Resp B/P (MAP) Pulse Ox O2 Delivery O2 Flow Rate FiO2 11/01/20 11:39 97.6 71 17 113/75 (88) 97 Room Air 10/31/20 12:00 40 10/30/20 12:25 15.0 I&O- Last 24 Hours up to 6 AM 11/01/20 06:00 Intake Total 1000 ml Output Total 1850 ml Balance -850 ml Laboratory Data 24H LABS Laboratory Tests 2 10/31/20 17:58: Bedside Glucose (Misc Panel) 82 10/31/20 23:30: Bedside Glucose (Misc Panel) 103 11/01/20 04:18: Immature Granulocyte % (Auto) 0.3, Neutrophils (%) (Auto) 70.9H, Lymphocytes (%) (Auto) 21.2L, Monocytes (%) (Auto) 6.2, Eosinophils (%) (Auto) 0.9, Basophils (%) (Auto) 0.5, Neutrophils # (Auto) 8.3, Lymphocytes # (Auto) 2.5, Monocytes # (Auto) 0.7, Eosinophils # (Auto) 0.1, Basophils # (Auto) 0.1, Nucleated Red Blood Cells % (auto) 0.0, Anion Gap 4L, Glomerular Filtration Rate > 60.0, Calcium Level 7.6L, Magnesium Level 2.2, Total Bilirubin 0.5#, Aspartate Amino Transf (AST/SGOT) 23, Alanine Aminotransferase (ALT/SGPT) 18, Alkaline Phosphatase 80, Total Protein 5.0L, Albumin 2.8L, Albumin/Globulin Ratio 1.3 CBC/BMP Laboratory Tests 11/01/20 04:18 Microbiology Microbiology 10/31/20 Urine Culture - Final, Complete 10/30/20 Blood Culture - Preliminary, Resulted No growth after 24 hours . All specim... 10/30/20 Blood Culture - Preliminary, Resulted No growth after 24 hours . All specim... GME ATTESTATION GME ATTESTATION My faculty preceptor for this patient encounter was physically present during the encounter and was fully available. All aspects of the patient interview, examination, medical decision making process, and medical care plan development were reviewed and approved by the faculty preceptor. The faculty preceptor is aware and concurs with the plan as stated in the body of this note and will attest to such by his/her cosignature. ATTENDING NOTE I, Shila Moody MD, have independently examined this patient and performed my own physical exam, as well as reviewed the documentation and edited where necessary. I have discussed in detail with the resident / student the findings and plan of treatment as documented by the resident / student and edited their note. I agree with their findings and treatment plan and have edited their documentation. I will continue to follow the patient during this hospital stay. MALU MOFFETT DO Nov 01, 2020 16:17 SHILA MOODY MD Nov 02, 2020 12:41
--- NOTE | 2020-11-01 18:26 | ECGEPIP ---
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 No remarkable changes Electronically Signed on 11-01-2020 18:25:54 EDT by Linus Liriano
--- NOTE | 2020-11-01 18:29 | MHIPNPDOC ---
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 she reports that she drinks alcohol, occasionally but she drank that day because she was already contemplating to overdose. Reports feeling depressed for several months, she was feeling hopeless and helpless, she has been under pressure ( work) and reports problems with her social life. She is from [place], she feels lonely but she says she has a support network. She says she is not suicidal at this time, but she admits to to feel depressed and regrets having done what she did. VITAL SIGNS: See below. NEW TEST RESULTS: See below. CURRENT MEDICATIONS: See below. MENTAL STATUS EXAMINATION: Patient is a 25-year old female, who is alert, cooperative, laying in hospital bed, wearing a hospital gown, with poor eye contact and god hygiene. Speech: Is soft spoken, he speech is sparse, slow. Language skills are fair. Thought processes including: linear and coherent. Thought content: she denies SI but she still feels a little hopeless and helpless, reports feeling guilty about her recent suicide attempt, reports depressive and anxious thoughts. Abstract reasoning, and computation: not assessed at this time, the patient still finds difficult to talk, her thrat is sore, she was extubated yesterday. Description of associations: Intact Description of abnormal or psychotic thoughts: denies TAV hallucinations, denies thought delusions, denies SI at this time. Judgment: improving. Insight: fair. Orientation: x 3. Recent and remote memory: fair. Attention span and concentration: good. Language: adequate. Fund of knowledge: average. Mood: depressed. Affect: depressed, blunted. DIAGNOSES: 1. Major ?Depressive disorder, recurrent, severe. 2. R/O Generalized anxiety disorder. 3. status post overdose 4. R/O alcohol use disorder ASSESSMENT: she is very depressed, will need to monitor Tylenol levels because they were high and she reported she overdosed on this medication too. For that reason is better not to give her any medication at this time. She's at high risk of suicide, this was a serious overdose. She denies feeling suicidal at his time but she is still at risk, so, I recommend for her to stay on 1:1 observation, with a sitter. [facility] is at full capacity at this time, but she needs to be transferred to [facility], so, I would recommend to call tomorrow morning and ask about bed availability. If beds are available, she will be admitted there. MANAGEMENT PLAN: As above. Waiting for a bed to transfer to [facility] TIME SPENT: 30 minutes. Vital Signs Vital Signs Date Time Temp Pulse Resp B/P (MAP) Pulse Ox O2 Delivery O2 Flow Rate FiO2 11/01/20 15:10 97.7 75 16 115/77 (90) 97 Room Air 10/31/20 12:00 40 10/30/20 12:25 15.0 Laboratory Data 24H Labs Laboratory Tests 2 10/31/20 23:30: Bedside Glucose (Misc Panel) 103 11/01/20 04:18: Immature Granulocyte % (Auto) 0.3, Neutrophils (%) (Auto) 70.9H, Lymphocytes (%) (Auto) 21.2L, Monocytes (%) (Auto) 6.2, Eosinophils (%) (Auto) 0.9, Basophils (%) (Auto) 0.5, Neutrophils # (Auto) 8.3, Lymphocytes # (Auto) 2.5, Monocytes # (Auto) 0.7, Eosinophils # (Auto) 0.1, Basophils # (Auto) 0.1, Nucleated Red Blood Cells % (auto) 0.0, Anion Gap 4L, Glomerular Filtration Rate > 60.0, Calcium Level 7.6L, Magnesium Level 2.2, Total Bilirubin 0.5#, Aspartate Amino Transf (AST/SGOT) 23, Alanine Aminotransferase (ALT/SGPT) 18, Alkaline Phosphatase 80, Total Protein 5.0L, Albumin 2.8L, Albumin/Globulin Ratio 1.3 CBC/BMP Laboratory Tests 11/01/20 04:18 Current Medications Current Medications Medications (Trade) Dose Ordered Sig/Soumya Route PRN Reason Start Time Stop Time Status Last Admin Dose Admin Amoxicillin/ Clavulanate Potassium (Augmentin) 875 mg BID PO 11/01/20 21:00 11/03/20 20:59 Ampicillin Sodium/ Sulbactam Sodium 1.5 gm/Dextrose 50 ml @ 100 mls/hr Q6H IV 10/30/20 13:10 10/30/20 14:08 DC Ampicillin Sodium/ Sulbactam Sodium 3 gm/Dextrose 100 ml @ 200 mls/hr Q6H IV 10/30/20 16:00 11/01/20 11:32 DC 11/01/20 09:57 Chlorhexidine Gluconate (Peridex Oral Rinse) SWAB/BRUSH ORAL CAVITY BID MT 10/30/20 09:00 10/31/20 17:49 DC 10/31/20 09:28 Dextrose/Lactated Ringer's 1,000 ml @ 125 mls/hr Q8H IV 10/30/20 10:00 10/31/20 10:13 DC 10/31/20 04:11 Enoxaparin Sodium (Lovenox) 40 mg DAILY SC 10/30/20 09:00 11/01/20 09:02 Home Med (Med Rec Complete!) ASDIRECTED XX 10/30/20 09:40 10/30/20 09:44 DC Midazolam HCl (Versed) 2 mg Q15MP PRN IV ANXIETY 10/30/20 12:35 10/31/20 10:43 DC Midazolam HCl (Versed) 3 mg Q15M PRN IV UNTIL ALYSSA 2-3 10/30/20 09:05 10/30/20 12:50 DC 10/30/20 11:00 Midazolam HCl 100 mg/Dextrose 100 ml @ 2 mls/hr Q24H IV 10/30/20 10:00 10/31/20 10:43 DC 10/31/20 07:45 Non-Formulary Medication (Refrigerator Leiva) Q1M PRN XX SEE LABEL COMMENTS 10/30/20 09:30 11/01/20 12:23 DC Pantoprazole Sodium (Protonix) 40 mg DAILY IV 10/30/20 09:00 11/01/20 09:02 Propofol 1000 mg/ IV Miscellaneous Supplies 100 ml @ 1.743 mls/ hr Q12H IV 10/30/20 08:45 10/30/20 14:38 DC 10/30/20 09:01 Sodium Chloride 1,000 ml @ 150 mls/hr Q6H40M IV 10/30/20 09:00 10/30/20 09:37 DC 10/30/20 09:00 Allergies Coded Allergies: No Known Allergies (Unverified , 09/18/20) VAZQUEZ BURNS MD Nov 01, 2020 18:29
[2020-11-01] MEDS: AUGMENTIN 875 MG TAB PO SCH (21:00)
[2020-11-01 22:00] VITALS: BP 124/83
[2020-11-02 06:00] VITALS: BP 142/83
[2020-11-02 06:40] LABS: BASO # 0.1 10^3/uL (0.0-0.2); BASO % 0.7 % (0.0-1.0); EOS # 0.1 10^3/uL (0.0-0.5); EOS % 1.4 % (0.0-3.0); LYMPH # 2.6 10^3/uL (1.5-5.0); LYMPH % 31.4 % (24.0-44.0); MEAN CORPUSCULAR HEMOGLOBIN 28.3 pg (27.0-33.0); MEAN CORPUSCULAR HGB CONC 32.4 g/dl (32.0-36.5); MEAN CORPUSCULAR VOLUME 87.3 fl (80.0-96.0); MONO # 0.5 10^3/uL (0.0-0.8); MONO % 6.2 % (2.0-8.0); NEUTROPHILS # 4.9 10^3/uL (1.5-8.5); NEUTROPHILS % 59.9 % (36.0-66.0); PLATELET COUNT, AUTOMATED 296 10^3/uL (150-450); RED BLOOD COUNT 4.24 10^6/uL (4.00-5.40); WHITE BLOOD COUNT 8.1 10^3/uL (4.0-10.0)
[2020-11-02 07:09] LABS: ALT/SGPT 21 U/L (12-78); BILIRUBIN,TOTAL 0.4 MG/DL (0.2-1.0); BLOOD UREA NITROGEN 5 MG/DL (7-18); CALCIUM LEVEL 8.5 MG/DL (8.5-10.1); CARBON DIOXIDE LEVEL 26 MEQ/L (21-32); CHLORIDE LEVEL 110 MEQ/L (98-107); CREATININE FOR GFR 0.81 MG/DL (0.55-1.30); GLOMERULAR FILTRATION RATE > 60.0 (>60); GLUCOSE, FASTING 76 MG/DL (70-100); MAGNESIUM LEVEL 2.1 MG/DL (1.8-2.4); POTASSIUM SERUM 3.8 MEQ/L (3.5-5.1); SODIUM LEVEL 140 MEQ/L (136-145)
[2020-11-02] MEDS: AUGMENTIN 875 MG TAB PO SCH ×2 (09:00→09:01)
[2020-11-02] MEDS: PANTOPRAZOLE 40MG VIAL (C9113 PER 1) IV SCH (09:01)
[2020-11-02] MEDS: ENOXAPARIN 40MG/0.4ML SYRINGE (J1650 PER 10MG) SC SCH (09:01)
[2020-11-02 14:00] VITALS: BP 127/90
--- NOTE | 2020-11-02 14:38 | DS.PDOC ---
Discharge Summary General Date of Admission Oct 30, 2020 at 09:26 Date of Discharge 11/02/20 Attending Physician: SHILA PIERRE MD Specialist/Consultants Involve: VAZQUEZ BARRAGAN MD Discharge Summary PROCEDURES PERFORMED DURING STAY: None ADMITTING DIAGNOSES: Depression Anxiety History of suicide attempt with drug overdose DISCHARGE DIAGNOSES: Suicide attempt with drug overdose Depression Anxiety History of suicide attempt with drug overdose Respiratory failure requiring intubation Suspected aspiration pneumonia Hypotension QT prolongation Lactic acidosis JAMIE COMPLICATIONS/CHIEF COMPLAINT: Depression With Suicidal Ideation,Resp Failure Req. HISTORY OF PRESENT ILLNESS: Ms. 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 She was newly prescribed the trazadone and hydroxyzine 1 month prior to be take with the escitalopram she was already on for anxiety and depression. The patient did not show up for morning PT on [employer] and an officer was sent to check on her. She was found in her apartment lying face down in her own vomitus surrounded by empty pill bottles and a bottle of alcohol. Once in the ER the patient was enc ephalopathic, tachycardic, and severely agitated ultimately requiring her to get intubated and admitted to the ICU for further care. HOSPITAL COURSE: #Intentional Drug overdose/ Suicide attempt -previous suicide attempt 09/18/20 -Patient overdosed on trazodone, escitalopram, and hydroxyzine in combination with alcohol and possible acetaminophen. -Patient's initial urine toxicology screen was positive for elevated ethyl alcohol and acetaminophen level of 6.2. Patient was kept on seizure precautions. -Received activated charcoal in the ED as well as free water flushes. -Patient LFTs and blood glucose was monitored. -Cervical spine and head CTs were negative for acute trauma -Patient was intubated for acute respiratory failure and experienced hypotension secondary to propofol. She was given 2L NS boluses with improvement in BP and started on versed drip. -Patient was extubated on Day 2 of hospitalization, started on a clear liquid diet which was advanced as tolerated. -Patient was put on one-on-one supervision and psychiatry was consulted. We continued to hold all psychiatric medications during her hospitalization. -Dr. Barragan recommended patient be discharged to the [facility] for further evaluation and psychiatric treatment. She was medically cleared from our standpoint and adm itted to [facility] #Suspected aspiration pneumonia -patient was found lying in her own vomitus and had an elevated WBC upon admission. -She was started on IV Unasyn for prevention of aspiration pneumonia and was eventually transitioned to oral augmentin for a total of 5 days of antibacterial coverage. -Chest xrays were negative for pulmonary pathology -She continued to be afebrile during admission and had clear lung sounds upon discharge. #Hypotension -Patient became hypotensive after being intubated and sedated with propofol 14mcg that had to be titrated up. -Her lowest recorded BP was 71/38. -Patient was given a 2L NS bolus with BP improvement and was started on versed drip for sedation. -She maintained a stable blood pressure on Day 2 and 3 of hospitalization #QT prolongation -Patient had a QT interval of 548 upon admission that was likely 2/2 to escitalopram, hydroxyzine, and trazodone overdose -Patient was placed on continuous telemetry and EKG monitoring every 4 hours. -She was given 1g of mg sulfate to prevent preventricular and supraventricular arrhythmias and did not have any noted during her hospitalization -We held all QT interval prolonging drugs and patient's last EKG on 08/02/20 had a QT interval of 473 which was downtrending from prior. #Lactic acidosis -Patient presented with an elevated lactic acid likely 2/2 to drug overdose -Her lactate levels were trended and eventually came back down to normal limits -Blood cultures and urine cultures were negative. #JAMIE -Patient initially had an JAMIE on admission. She was given 2L NS boluses as well as D5LR for maintenance fluids with resolution of JAMIE upon discharge. DISCHARGE MEDICATIONS: Please see below. ALLERGIES: Please see below. PHYSICAL EXAMINATION ON DISCHARGE: VITAL SIGNS: Please see below. GENERAL: A well nourished female lying in bed in no acute distress HEENT: normocphalic atraumatic, sclera are non icteric, mucous membranes are moist and pink, good dentition NECK: neck is supple, trachea midline, no lymphadenopathy appreciated. CARDIOVASCULAR EXAMINATION: regular rate and rhythm, no murmurs, rubs or gallops appreciated. RESPIRATORY EXAMINATION: Clear to auscultation bilaterally, equal air intake bilaterally, no rhonchi, wheezes, or rales noted ABDOMINAL EXAMINATION: soft, positive bowel sounds, slight tenderness to palpation in lower quadrants secondary to injection site of lovenox, no organomegaly noted EXTREMITIES: no edema noted, pulses 2+ throughout, capillary refill <2 seconds SKIN: no rashes or ulcerations, tattoo visible on right forearm PSYCHIATRIC EXAMINATION: alert and oriented x 3. Depressed mood. LABORATORY DATA: Please see below. IMAGING: Chest x-ray 10/30/20: Impression: No acute pulmonary disease. Endotracheal tube and nasogastric tube as above. Cervical spine CT 10/30/20: Impression: 1. No CT evidence of acute cervical spine traumatic injury. 2. Additional findings, as above. Head CT 10/30/20: Impression: No CT evidence of acute intracranial pathology. Chest x-ray 10/31/20: Impression: Endotracheal and nasogastric tubes in good position. No acute cardiopulmonary abnormality. PROGNOSIS: Good ACTIVITY: As tolerated DIET: Regular diet DISCHARGE PLAN: Discharge to [facility] DISPOSITION: Ms. Monroe is medically cleared at this time. She is being discharged to [facility] for further. It was a pleasure taking care of Ms. Monroe while she was hospitalized. DISCHARGE INSTRUCTIONS: -Discharged to [facility] -Follow up with psychiatry within 1 week of discharge -Follow up with PCP within 1 week of discharge ITEMS TO FOLLOWUP ON ON OUTPATIENT: -Mental health -Balancing life stressors -Noticing suicidal thoughts and urges in oneself -Establishing a strong support network -Drug and alcohol counseling DISCHARGE CONDITION: Patient is stable, continue one-on-one sitter until patient is admitted to [facility]. TIME SPENT ON DISCHARGE: greater than 25 minutes. Vital Signs/I&Os Vital Signs Date Time Temp Pulse Resp B/P (MAP) Pulse Ox O2 Delivery O2 Flow Rate FiO2 11/02/20 14:00 98.4 64 17 127/90 (102) 100 Room Air 10/31/20 12:00 40 10/30/20 12:25 15.0 I&O- Last 24 Hours up to 6 AM 11/02/20 06:00 Intake Total 1540 ml Output Total 1275 ml Balance 265 ml Laboratory Data Labs 24H Laboratory Tests 2 11/02/20 06:24: Immature Granulocyte % (Auto) 0.4, Neutrophils (%) (Auto) 59.9, Lymphocytes (%) (Auto) 31.4, Monocytes (%) (Auto) 6.2, Eosinophils (%) (Auto) 1.4, Basophils (%) (Auto) 0.7, Neutrophils # (Auto) 4.9, Lymphocytes # (Auto) 2.6, Monocytes # (Auto) 0.5, Eosinophils # (Auto) 0.1, Basophils # (Auto) 0.1, Nucleated Red Blood Cells % (auto) 0.0, Anion Gap 4L, Glomerular Filtration Rate > 60.0, Calcium Level 8.5, Magnesium Level 2.1, Total Bilirubin 0.4, Aspartate Amino Transf (AST/SGOT) 22, Alanine Aminotransferase (ALT/SGPT) 21, Alkaline Phosphatase 81, Total Protein 6.0L, Albumin 3.0L, Albumin/Globulin Ratio 1.0L CBC/BMP Laboratory Tests 11/02/20 06:24 Microbiology Microbiology 10/31/20 Urine Culture - Final, Complete 10/30/20 Blood Culture - Preliminary, Resulted No Growth after 48 hours. All Specime... 10/30/20 Blood Culture - Preliminary, Resulted No Growth after 48 hours. All Specime... Discharge Medications Scheduled Ethinyl Estradiol/Drospirenone (Enedina 28 Tablet) 1 Each Tablet, 1 TAB PO DAILY, (Reported) Allergies Coded Allergies: No Known Allergies (Unverified , 09/18/20) MALU MOFFETT DO Nov 02, 2020 14:38
== END 2020-11-02 17:36 | DRG 271 ==
LOC: EDBD 08:18 → M ED 08:18 → M ED INP 09:26 → ENRESERV 11:17 → M ICU 12:10 → M MSPAV 11-01 15:10
PROVIDERS: ADMIT Internal Medicine Pulmonary Disease; ATTEND Internal Medicine
PROC: 0BH17EZ Insertion of Endotracheal Airway into Trachea, Via Natural or Artificial Opening (ICD-10-PCS; principal; 2020-10-30)
PROC: 5A1945Z Respiratory Ventilation, 24-96 Consecutive Hours (ICD-10-PCS; 2020-10-30)
DX: T43.212A Poisoning by selective serotonin and norepinephrine reuptake inhibitors, intentional self-harm, initial encounter (principal); J96.00 Acute respiratory failure, unspecified whether with hypoxia or hypercapnia; J69.0 Pneumonitis due to inhalation of food and vomit; E87.2 Acidosis; N17.9 Acute kidney failure, unspecified; F33.2 Major depressive disorder, recurrent severe without psychotic features; G93.40 Encephalopathy, unspecified; I95.9 Hypotension, unspecified; T39.1X2A Poisoning by 4-Aminophenol derivatives, intentional self-harm, initial encounter; T43.592A Poisoning by other antipsychotics and neuroleptics, intentional self-harm, initial encounter; F41.1 Generalized anxiety disorder; R68.0 Hypothermia, not associated with low environmental temperature; F10.129 Alcohol abuse with intoxication, unspecified; R56.9 Unspecified convulsions; Z79.899 Other long term (current) drug therapy

== ENCOUNTER 2020-11-02 13:46 | Inpatient (IN) | payer OTHER ==
[~2020-11-02 13:46] MED LIST: HYDR-643 PO; LEXA1TAB PO; MED REC COMMENT; TRAZ-252 PO; YAZ1TAB PO
[2020-11-02] MEDS ORDERED: MOM 30ML SUSPENSION UDC PO PRN (14:20)
[2020-11-02] MEDS ORDERED: ACETAMINOPHEN TAB 650MG DOSE (2X325MG) PO PRN (14:20)
[2020-11-02] MEDS ORDERED: MAALOX 30 ML SUSP *UDC PO PRN (14:20)
[2020-11-02] MEDS ORDERED: traZODone 50 MG TAB PO PRN (14:20)
[2020-11-02 18:33] VITALS: BP 127/91
[2020-11-03 06:15] VITALS: BP 113/58
[2020-11-03 08:53] VITALS: BP 113/58
[2020-11-03] MEDS ORDERED: SERTRALINE HCL 50 MG TAB PO SCH (09:00)
--- NOTE | 2020-11-03 14:59 | MHHPE ---
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 Was admitted because of severe depression and suicide attempt. CHIEF COMPLAINT: "I had a lot of stress, and I thought of hurting myself." HISTORY OF PRESENT ILLNESS: Patient was admitted to the hospital a month ago for suicide attempt by overdose of pills. After the discharge, patient was well for awhile and again got severely depressed and attempted suicide by overdosing on hydroxyzine 10 mg, trazodone 50 mg, and escitalopram 10 mg. All the bottles were empty. Before she overdosed on pills she drank alcohol. She was found lying in her own vomitus. After she was brought to the hospital, she was intubated for respiratory depression, and after she was stabilized she was transferred to inpatient mental health unit ([facility]). During my evaluation, she reported that she is going through a lot of stress. Patient has family issues. They have psychiatric problems and alcohol issues, and she reports she has social issues. She is adequate with her friends. She also had relationship problem. She broke up with a boyfriend. It was devastating, as that was her first relationship, which happened a month ago. She had a history of depression about 2 years ago, which increased a couple of months ago, and recently for a week she was contemplating, and on that day after drinking alcohol she attempted suicide. Her sleep is poor. Her energy is low. She feels worthless, helpless, hopeless. Currently denies suicidal thoughts. Denies any history of tiffanie. Patient has a history of panic attacks without agoraphobia. Denies any history of manic episodes or psychosis. CURRENT MEDICATIONS: - Zoloft 50 mg once daily - trazodone 50 mg at bedtime as needed PAST PSYCHIATRIC HISTORY: This is her third hospitalization. She was hospitalized when she was a 21-year-old. She does not remember the medications she was on. Recently she was placed on Prozac. She had side effects, so she stopped taking it. Now she is on Zoloft, which she does not like. She prefers to have a capsule rather than the tablet. SUICIDAL HISTORY: She attempted suicide twice, once before a month. DRUG/ALCOHOL HISTORY: Patient has a problem with alcohol. Started drinking alcohol about three times a week, a few beers. Denies use of any other drugs. MEDICAL HISTORY: She denies medical problems. FAMILY HISTORY: Her father, one brother, and one sister have a history of alcoholism. Mother has a history of depression. One brother has a history of bipolar disorder. PERSONAL HISTORY: She was raised by her father and mother until she was age 13. Then she lived with her mother. She was born and raised in [place]. She has two brothers and one sister. Completed high school graduation. She has gone to 2 years of college. She has worked for 1 year. Now for 1-1/2 years she is in the . MENTAL STATUS EXAMINATION: Thin built, cooperative. Makes good eye contact. Psychomotor activity is retarded. Mood is depressed. Affect is constricted. Speech rate is low. Volume is low tone. Thought process linear, goal directed. Thought content: Currently denies any suicidal thoughts. She denies any auditory or visual hallucinations. Her insight and judgment are limited. VITAL SIGNS: Temperature 98.3, pulse 62, respiratory rate 14, blood pressure 113/58, pulse oximetry 97. REVIEW OF SYSTEMS: Denied any chest pain, palpitations. Denied any shortness of breath or cough. Denied abdominal pain, dysuria. Denied tingling, numbness, and dizziness. Her bones and joints are normal. DIAGNOSES: 1. Major depressive disorder, recurrent. 2. Panic disorder without agoraphobia. ASSESSMENT AND PLAN: Patient is severely depressed. She had two attempts in span of 2 months. I would like to place her on venlafaxine 37.5 mg once daily and Seroquel 25 mg once daily. Discontinue her Zoloft, as patient does not like to take Zoloft. Continue individual, group, and milieu therapy. She will be followed up by case management and social work associate. She will be kept on suicide precautions and 15-minute checks. She will continue with individual, group, and milieu therapy. ESTIMATED LENGTH OF STAY: 6-7 day. PLAN: Continue the above-mentioned medications, and we are in touch with [facility] regarding her possible discharge to a long-term treatment facility. TIME SPENT: 45 minutes.
[2020-11-03 18:00] VITALS: BP 124/78
--- NOTE | 2020-11-03 20:49 | CR ---
CONSULTATION DATE: 11/03/2020 Patient seen at approximately 5:00 p.m. PHYSICIAN REQUESTING CONSULTATION: Dr. Fan REASON FOR CONSULTATION: Medical evaluation of inpatient psychiatric recipient. 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 She was brought back in for worsening severe depression and attempted suicide by taking Hydroxyzine, Trazodone and Escitalopram. She was intubated to protect her airway and then subsequently extubated and transferred to the inpatient psychiatric service. At present, patient denies any other medical problems. ALLERGIES: No known drug allergies. CURRENT MEDICATIONS: Venlafaxine 37.5 daily, Seroquel 25 mg at bedtime, Trazodone 50 mg at bedtime as needed for sleep. She has p.r.n. medications consisting of Tylenol, Mylanta, Milk of Magnesia. PAST MEDICAL HISTORY: Notable for previous suicide attempt as well as major depression. PAST SURGICAL HISTORY: Nil. FAMILY HISTORY: Patient reports notable for psychiatric issues. 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 She does not use alcohol or tobacco or illicit drugs. REVIEW OF SYSTEMS: 12 systems reviewed with this patient are other negative on my examination today. PHYSICAL EXAMINATION: The patient's temperature is 98.3, pulse 62, respirations 14, blood pressure 113/58; O2 saturation is 97% on room air. In general, the patient is alert and oriented x3. She appears depressed. Her skin is intact and warm to touch. Head is atraumatic. Pupils are symmetric and react to light. Tympanic membranes visualized bilaterally without any visible erythema or drainage or occlusion in the external ear canals. Her pinnas are normal in appearance. Nares are patent bilaterally without visible discharge. Oropharynx is clear. Oral mucosa is moist. Neck supple. No thyromegaly. Lung sounds present without rales, wheezing or rhonchi. Heart: S1, S2; no murmurs, rubs or gallops. Abdomen is soft, nontender, nondistended with active bowel sounds. Extremities without any cyanosis, clubbing or edema. Neurologically, cranial nerves are grossly intact. Her gait is normal. LABORATORY DATA: Labs have been reviewed by me and include the following: WBC 8.1, hemoglobin 12, hematocrit 37, platelet count 296,000. PT 15.9, INR 1.2. Sodium 140, potassium 3.8, chloride 110, bicarb 26, BUN 5, creatinine 0.81. Lactic acid 1.6. Calcium 8.5, phosphorus 2.8, magnesium 2.1. AST 22, ALT 21, alkaline phosphatase 81. Urine HCG was negative. TSH 1.38. Urine drug screen was positive for alcohol. Urinalysis was otherwise unremarkable. COVID swab was negative. IMAGING STUDIES: Chest x-ray was done, which showed that the endotracheal tube was in good position, otherwise no acute cardiopulmonary process. IMPRESSION: 1. Severe depression with recent suicide attempt. 2. Normal female physical exam. RECOMMENDATIONS: Patient is medically stable to undergo inpatient psychiatric treatment. We will sign off now as patient has no active medical issues. Should any arise, please feel free to contact me. WENDI
[2020-11-03] MEDS: QUEtiapine FUMARATE 25 MG TAB PO SCH (21:31)
[2020-11-04 05:30] VITALS: BP 99/56
[2020-11-04] MEDS: VENLAFAXINE **XR** 37.5 MG CAPSULE PO SCH (10:15)
[2020-11-04 16:26] VITALS: BP 117/69
[2020-11-04] MEDS: QUEtiapine FUMARATE 25 MG TAB PO SCH (21:34)
[2020-11-05 06:22] VITALS: BP 109/57
[2020-11-05] MEDS: VENLAFAXINE **XR** 37.5 MG CAPSULE PO SCH (08:46)
--- NOTE | 2020-11-05 14:07 | MHIPN ---
[facility] PROGRESS NOTE DATE: 11/04/2020 VITAL SIGNS: Blood pressure 99/56, pulse 72, temperature 98.1. This is a video assessment. She is seen in the presence of staff. She is in the inpatient psychiatry unit at [facility]. I am at home. CHIEF COMPLAINT: Says feels okay. SUBJECTIVE: Seen for followup. Indicates has been feeling okay but vague on this. Says she is happy that she survived the suicide attempt and feels ready to "move on." Says has been eating okay. Denies any suicidal thoughts or intents at present. Says would reach out to others if felt suicidal again, but again is vague on this. Says may reach out to the clinicians at [place], where she is seen. MENTAL STATUS EXAMINATION: Neat, cooperative, though somewhat guarded. Some psychomotor retardation. Displays latency of response. Coherent. No agitation. Appears depressed with a restricted affect. Denies any suicidal thoughts or intents. No homicidal ideas or intents. No evidence of any psychosis. Cognition grossly intact. Judgment and insight remain compromised. ASSESSMENT: 1. Major depressive disorder, recurrent, severe without psychotic features. 2. Panic disorder without agoraphobia. Remains depressed, significantly so and at risk, given the intensity of her mood. PLAN: Continue current care, observations. Has just been started on venlafaxine, which will be titrated. The Zoloft is discontinued, as she does not like taking the tablets. They also plan, I understand, for her to go for long-term care at a facility in ____. This is being coordinated with Jonelle Okeefe.
[2020-11-05 15:35] VITALS: BP 102/57
[2020-11-05] MEDS: QUEtiapine FUMARATE 25 MG TAB PO SCH (21:02)
[2020-11-06 06:26] VITALS: BP 122/78
--- NOTE | 2020-11-06 08:53 | MHIPN ---
[facility] PROGRESS NOTE DATE: 11/05/2020 VITAL SIGNS: Blood pressure 109/57, pulse 65, temperature 97.9. This is a video assessment, she is at the inpatient unit at the hospital, she is seen in the presence of staff, I am at home. CHIEF COMPLAINT: Says feels okay. SUBJECTIVE: She is seen for followup, indicates has been feeling okay, later says "the same." She says slept fairly well. Appetite has been okay. Says has not had much to do. MENTAL STATUS EXAMINATION: Neat, cooperative, no agitation, possibly mild psychomotor retardation, in that there is a latency of response briefly. Affect is restricted with little reactivity. She denies any suicidal thoughts or intents, no homicidal ideas or intents, no evidence of any psychosis, cognition grossly intact, judgment and insight compromised. ASSESSMENT: Major depressive disorder, recurrent, this is severe, without psychotic features. Panic disorder without agoraphobia. Remains depressed, has been started on venlafaxine, has tolerated it well so far, and this will very likely require an increase, though it is preferable that it is increased possibly after she has been transferred to [place] for longer-term care. There is expected to be more known tomorrow, it being Friday. If she is to leave shortly, it is preferable not to increase the venlafaxine, as there may be concerns regarding side effects. Further recommendations to be made by the clinical team tomorrow.
[2020-11-06] MEDS: VENLAFAXINE **XR** 37.5 MG CAPSULE PO SCH (09:23)
--- NOTE | 2020-11-06 12:29 | MHIPNPDOC ---
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 Was admitted because of severe depression and suicide attempt. CHIEF COMPLAINT: "I had a lot of stress, and I thought of hurting myself." HISTORY OF PRESENT ILLNESS: Patient was admitted to the hospital a month ago for suicide attempt by overdose of pills. After the discharge, patient was well for a while and again got severely depressed and attempted suicide by overdosing on hydroxyzine 10 mg, trazodone 50 mg, and Escitalopram 10 mg. All the bottles were empty. Before she overdosed on pills she drank alcohol. She was found lying in her own vomitus. After she was brought to the hospital, she was intubated for respiratory depression, and after she was stabilized she was transferred to inpatient mental health unit ([facility] During my evaluation, she reported that she is going through a lot of stress. Patient has family issues. They have psychiatric problems and alcohol issues, and she reports she has social issues. She is adequate with her friends. She also had relationship problem. She broke up with a boyfriend. It was devastating, as that was her first relationship, which happened a month ago. She had a history of depression about 2 years ago, which increased a couple of months ago, and recently for a week she was contemplating, and on that day after drinking alcohol she attempted suicide. Her sleep is poor. Her energy is low. She feels worthless, helpless, and hopeless. Currently denies suicidal thoughts. Denies any history of tiffanie. Patient has a history of panic attacks without agoraphobia. Denies any history of manic episodes or psychosis. 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 she reports that she drinks alcohol, occasionally but she drank that day because she was already contemplating to overdose. Reports feeling depressed for several months, she was feeling hopeless and helpless, she has been under pressure (work) and reports problems with her social life. She is from [place], she feels lonely but she says she has a support network. She says she is not suicidal at this time, but she admits to to feel depressed and regrets having done what she did. Per Old ER Chart 09/18/20: Pt was referred to ED after pt presented to [facility] walk in hours and expressed SI with plan to OD on medication. Pt states, "I have nothing to live for anymore and I'm just done with life." Pt reports struggling with suicidal thoughts for the past few weeks with plan to "OD or something." Suicidal triggers include recent break up with boyfriend about 3 wks ago. States she's extremely lonely and has been self-medicating with ETOH. Early this morning, she reports getting pulled over while intoxicated and was arrested for a DUI and an "open container." Pt states, "my life is over and I want to kill myself." She continues to voice SI with plan to OD on medication. States she has attempted suicide in the past by OD and was hospitalized in [place]. VITAL SIGNS: See below. CURRENT MEDICATIONS: See below. 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 Speech: Is spontaneous, low tone and volume Language skills are intact Thought processes including: linear and goal oriented Thought content: denies moderate to severe depression and anxiety but appears depressed. Denies suicidal/homicidal ideation, planning or intent. Abstract reasoning, and computation: fair Description of associations: denies, none observed Description of abnormal or psychotic thoughts: denies, none observed. Judgment: impaired to fair Insight: impaired to fair Orientation: alert and oriented to person, place, time and situation Recent and remote memory: intact Attention span and concentration: good Language: expansive Fund of knowledge: average Mood: Depressed Mood Affect: blunted DIAGNOSES: 1. Major depressive disorder, recurrent. 2. Panic disorder without agoraphobia. ASSESSMENT: Patient appeared disgusted with having to report her reasons for being in the hospital, has a blunted and depressed affect. Reports from staff that she is isolative and withdrawn to her room. Patient reports a recent b reakup with boyfriend and appears to minimize this breakup but this occurred in August of this year and then recently patient had a DUI sometime after this event. Patient was quite superficial in the interview. She was very disengaged and when the discussion of not discharging her today, she stood up and slammed the interview door, as well as, her door to her room. Per staff Jonelle Okeefe is hoping to place in her long-term inpatient hospitalization. Based on patient's history of suicide attempts, I concur with this treatment plan. MANAGEMENT PLAN: Continue all current medication regimen and supportive therapies TIME SPENT: 25 minutes. Vital Signs Vital Signs Date Time Temp Pulse Resp B/P (MAP) Pulse Ox O2 Delivery O2 Flow Rate FiO2 11/06/20 06:26 97.3 90 16 122/78 (93) 99 Room Air Current Medications Current Medications Medications (Trade) Dose Ordered Sig/Soumya Route PRN Reason Start Time Stop Time Status Last Admin Dose Admin Acetaminophen (Tylenol Tab) 650 mg Q6HP PRN PO HEADACHE or MILD DISCOMFORT 11/02/20 14:20 Al Hydrox/Mg Hydrox/Simethicone (Mylanta) 30 ml Q4HP PRN PO HEARTBURN/INDIGESTION 11/02/20 14:20 Home Med (Med Rec Complete!) ASDIRECTED XX 11/02/20 18:05 11/02/20 18:10 DC Magnesium Hydroxide (Milk Of Magnesia) 30 ml DAILYPRN PRN PO CONSTIPATION 11/02/20 14:20 Quetiapine Fumarate (SEROquel) 25 mg QHS PO 11/03/20 21:00 11/05/20 21:02 Sertraline HCl (Zoloft) 50 mg DAILY PO 11/03/20 09:00 11/03/20 13:20 DC 11/03/20 09:22 Trazodone HCl (Desyrel) 50 mg QHSP PRN PO INSOMNIA 11/02/20 14:20 Venlafaxine HCl (Effexor Xr) 37.5 mg DAILY PO 11/04/20 09:00 11/06/20 09:23 Allergies Coded Allergies: No Known Allergies (Unverified , 09/18/20) ANTHONY MCLAUGHLIN [employer] Nov 06, 2020 12:29
[2020-11-06 19:00] VITALS: BP 111/61
[2020-11-06] MEDS: QUEtiapine FUMARATE 25 MG TAB PO SCH (21:03)
[2020-11-07 07:07] VITALS: BP 110/56
[2020-11-07] MEDS: VENLAFAXINE **XR** 37.5 MG CAPSULE PO SCH (09:51)
--- NOTE | 2020-11-07 11:03 | MHIPNPDOC ---
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 Was admitted because of severe depression and suicide attempt. CHIEF COMPLAINT: "I had a lot of stress, and I thought of hurting myself." HISTORY OF PRESENT ILLNESS: Patient was admitted to the hospital a month ago for suicide attempt by overdose of pills. After the discharge, patient was well for a while and again got severely depressed and attempted suicide by overdosing on hydroxyzine 10 mg, trazodone 50 mg, and Escitalopram 10 mg. All the bottles were empty. Before she overdosed on pills she drank alcohol. She was found lying in her own vomitus. After she was brought to the hospital, she was intubated for respiratory depression, and after she was stabilized she was transferred to inpatient mental health unit ([facility]). During my evaluation, she reported that she is going through a lot of stress. Patient has family issues. They have psychiatric problems and alcohol issues, and she reports she has social issues. She is adequate with her friends. She also had relationship problem. She broke up with a boyfriend. It was devastating, as that was her first relationship, which happened a month ago. She had a history of depression about 2 years ago, which increased a couple of months ago, and recently for a week she was contemplating, and on that day after drinking alcohol she attempted suicide. Her sleep is poor. Her energy is low. She feels worthless, helpless, and hopeless. Currently denies suicidal thoughts. Denies any history of tiffanie. Patient has a history of panic attacks without agoraphobia. Denies any history of manic episodes or psychosis. 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 she reports that she drinks alcohol, occasionally but she drank that day because she was already contemplating to overdose. Reports feeling depressed for several months, she was feeling hopeless and helpless, she has been under pressure (work) and reports problems with her social life. She is from [place], she feels lonely but she says she has a support network. She says she is not suicidal at this time, but she admits to to feel depressed and regrets having done what she did. Per Old ER Chart 09/18/20: Pt was referred to ED after pt presented to [facility] walk in hours and expressed SI with plan to OD on medication. Pt states, "I have nothing to live for anymore and I'm just done with life." Pt reports struggling with suicidal thoughts for the past few weeks with plan to "OD or something." Suicidal triggers include recent break up with boyfriend about 3 wks ago. States she's extremely lonely and has been self-medicating with ETOH. Early this morning, she reports getting pulled over while intoxicated and was arrested for a DUI and an "open container." Pt states, "my life is over and I want to kill myself." She continues to voice SI with plan to OD on medication. States she has attempted suicide in the past by OD and was hospitalized in [place]. VITAL SIGNS: See below. CURRENT MEDICATIONS: See below. 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 Dress appropriately, makes no eye contact Speech: Is spontaneous, low tone and volume Language skills are intact Thought processes including: linear and goal oriented Thought content: denies moderate to severe depression and anxiety but appears depressed. Denies suicidal/homicidal ideation, planning or intent. Abstract reasoning, and computation: fair Description of associations: denies, none observed Description of abnormal or psychotic thoughts: denies, none observed. Judgment: impaired to fair Insight: impaired to fair Orientation: alert and oriented to person, place, time and situation Recent and remote memory: intact Attention span and concentration: good Language: expansive Fund of knowledge: average Mood: Depressed Mood Affect: blunted/tearful DIAGNOSES: 1. Major depressive disorder, recurrent. 2. Panic disorder without agoraphobia. ASSESSMENT: Patient exhibits dysphoria, states that being on the unit "is making me feel worse" She states that she was upset yesterday having to repeat her reasons for hospitalization, was told that she may be discharged to home yesterday and that today she is not being discharged. She reports that she was unaware that she was being transferred door to door to a care home facility per Jonelle Okeefe's recommendations. She was quite tearful in the interview, sulked most of the time and was indignant when explained that treatment plan was to follow Jonelle Okeefe's recommendations. "I was told I could leave! This place is making me feel worse!" Explained to patient that given that her suicide attempt was almost fatal that I agree with the the [employer]'s recommendations. Patient appears to downplay her attempt and does not appear to comprehend that this was almost a fatality. She was quick to correct the provider and stated that she's only had 2 suicide attempts. Patient is isolative, withdrawn, does not engage in the milieu, does not attend groups, she has very little participation in individual sessions and I believe that she has a high risk of another suicide attempt if discharged today. MANAGEMENT PLAN: Continue all current medication regimen and supportive therapies TIME SPENT: 25 minutes. Vital Signs Vital Signs Date Time Temp Pulse Resp B/P (MAP) Pulse Ox O2 Delivery O2 Flow Rate FiO2 11/07/20 07:07 98.8 90 18 110/56 (74) 99 Room Air Current Medications Current Medications Medications (Trade) Dose Ordered Sig/Soumya Route PRN Reason Start Time Stop Time Status Last Admin Dose Admin Acetaminophen (Tylenol Tab) 650 mg Q6HP PRN PO HEADACHE or MILD DISCOMFORT 11/02/20 14:20 Al Hydrox/Mg Hydrox/Simethicone (Mylanta) 30 ml Q4HP PRN PO HEARTBURN/INDIGESTION 11/02/20 14:20 Home Med (Med Rec Complete!) ASDIRECTED XX 11/02/20 18:05 11/02/20 18:10 DC Magnesium Hydroxide (Milk Of Magnesia) 30 ml DAILYPRN PRN PO CONSTIPATION 11/02/20 14:20 Quetiapine Fumarate (SEROquel) 25 mg QHS PO 11/03/20 21:00 11/06/20 21:03 Sertraline HCl (Zoloft) 50 mg DAILY PO 11/03/20 09:00 11/03/20 13:20 DC 11/03/20 09:22 Trazodone HCl (Desyrel) 50 mg QHSP PRN PO INSOMNIA 11/02/20 14:20 Venlafaxine HCl (Effexor Xr) 37.5 mg DAILY PO 11/04/20 09:00 11/07/20 09:51 Allergies Coded Allergies: No Known Allergies (Unverified , 09/18/20) ANTHONY MCLAUGHLIN NP Nov 07, 2020 11:03
[2020-11-07 18:00] VITALS: BP 115/65
[2020-11-07] MEDS: QUEtiapine FUMARATE 25 MG TAB PO SCH (20:27)
[2020-11-08 06:44] VITALS: BP 89/50
[2020-11-08] MEDS: VENLAFAXINE **XR** 37.5 MG CAPSULE PO SCH (08:47)
--- NOTE | 2020-11-08 12:40 | MHIPNPDOC ---
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 Was admitted because of severe depression and suicide attempt. CHIEF COMPLAINT: "I had a lot of stress, and I thought of hurting myself." HISTORY OF PRESENT ILLNESS: Patient was admitted to the hospital a month ago for suicide attempt by overdose of pills. After the discharge, patient was well for a while and again got severely depressed and attempted suicide by overdosing on hydroxyzine 10 mg, trazodone 50 mg, and Escitalopram 10 mg. All the bottles were empty. Before she overdosed on pills she drank alcohol. She was found lying in her own vomitus. After she was brought to the hospital, she was intubated for respiratory depression, and after she was stabilized she was transferred to inpatient mental health unit ([facility]). During my evaluation, she reported that she is going through a lot of stress. Patient has family issues. They have psychiatric problems and alcohol issues, and she reports she has social issues. She is adequate with her friends. She also had relationship problem. She broke up with a boyfriend. It was devastating, as that was her first relationship, which happened a month ago. She had a history of depression about 2 years ago, which increased a couple of months ago, and recently for a week she was contemplating, and on that day after drinking alcohol she attempted suicide. Her sleep is poor. Her energy is low. She feels worthless, helpless, and hopeless. Currently denies suicidal thoughts. Denies any history of tiffanie. Patient has a history of panic attacks without agoraphobia. Denies any history of manic episodes or psychosis. 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 she reports that she drinks alcohol, occasionally but she drank that day because she was already contemplating to overdose. Reports feeling depressed for several months, she was feeling hopeless and helpless, she has been under pressure (work) and reports problems with her social life. She is from [place], she feels lonely but she says she has a support network. She says she is not suicidal at this time, but she admits to to feel depressed and regrets having done what she did. Per Old ER Chart 09/18/20: Pt was referred to ED after pt presented to [facility] walk in hours and expressed SI with plan to OD on medication. Pt states, "I have nothing to live for anymore and I'm just done with life." Pt reports struggling with suicidal thoughts for the past few weeks with plan to "OD or something." Suicidal triggers include recent break up with boyfriend about 3 wks ago. States she's extremely lonely and has been self-medicating with ETOH. Early this morning, she reports getting pulled over while intoxicated and was arrested for a DUI and an "open container." Pt states, "my life is over and I want to kill myself." She continues to voice SI with plan to OD on medication. States she has attempted suicide in the past by OD and was hospitalized in [place]. VITAL SIGNS: See below. CURRENT MEDICATIONS: See below. 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 Dress appropriately, makes no eye contact Speech: Is spontaneous, low tone and volume Language skills are intact Thought processes including: linear and goal oriented Thought content: reports continued depression and anxiety but appears depressed. Denies suicidal/homicidal ideation, planning or intent. Abstract reasoning, and computation: fair Description of associations: denies, none observed Description of abnormal or psychotic thoughts: denies, none observed. Judgment: impaired to fair Insight: impaired to fair Orientation: alert and oriented to person, place, time and situation Recent and remote memory: intact Attention span and concentration: good Language: expansive Fund of knowledge: average Mood: Depressed Mood Affect: constricted DIAGNOSES: 1. Major depressive disorder, recurrent. 2. Panic disorder without agoraphobia. ASSESSMENT: Patient continues to report depression and anxiety. She has a past today to pack for intensive inpatient facility and treatment in [place]. She will be discharged tomorrow with her current medication regimen. Patient does not feel that she needs further hospitalization, her affect is quite constricted and denies depression but later on in the conversation she did report depressive symptoms. She states that multiple stressors caused anxiety 1) Life in [place] - states that she is dissatisfied and not working her MOS, 2) recent breakup with boyfriend, 3) DUI MANAGEMENT PLAN: Continue all current medication regimen and supportive therapies. Discharge tomorrow TIME SPENT: 25 minutes. Vital Signs Vital Signs Date Time Temp Pulse Resp B/P (MAP) Pulse Ox O2 Delivery O2 Flow Rate FiO2 11/08/20 06:44 98.2 68 18 89/50 (63) 96 Room Air Current Medications Current Medications Medications (Trade) Dose Ordered Sig/Soumya Route PRN Reason Start Time Stop Time Status Last Admin Dose Admin Acetaminophen (Tylenol Tab) 650 mg Q6HP PRN PO HEADACHE or MILD DISCOMFORT 11/02/20 14:20 Al Hydrox/Mg Hydrox/Simethicone (Mylanta) 30 ml Q4HP PRN PO HEARTBURN/INDIGESTION 11/02/20 14:20 Home Med (Med Rec Complete!) ASDIRECTED XX 11/02/20 18:05 11/02/20 18:10 DC Magnesium Hydroxide (Milk Of Magnesia) 30 ml DAILYPRN PRN PO CONSTIPATION 11/02/20 14:20 Quetiapine Fumarate (SEROquel) 25 mg QHS PO 11/03/20 21:00 11/07/20 20:27 Sertraline HCl (Zoloft) 50 mg DAILY PO 11/03/20 09:00 11/03/20 13:20 DC 11/03/20 09:22 Trazodone HCl (Desyrel) 50 mg QHSP PRN PO INSOMNIA 11/02/20 14:20 Venlafaxine HCl (Effexor Xr) 37.5 mg DAILY PO 11/04/20 09:00 11/08/20 08:47 Allergies Coded Allergies: No Known Allergies (Unverified , 09/18/20) ANTHONY MCLAUGHLIN [employer] AP[employer]ENTICE Nov 08, 2020 12:40
[2020-11-08] MEDS ORDERED: QUET25TA3 PO (12:43)
[2020-11-08] MEDS ORDERED: VENL37.598 PO (12:43)
[2020-11-08 18:31] VITALS: BP 136/88
[2020-11-08] MEDS: QUEtiapine FUMARATE 25 MG TAB PO SCH (20:35)
[2020-11-09 06:20] VITALS: BP 123/56
[2020-11-09 06:23] VITALS: BP 90/57
[2020-11-09] MEDS: VENLAFAXINE **XR** 37.5 MG CAPSULE PO SCH (06:53)
--- NOTE | 2020-11-09 09:07 | MHDSPDOC ---
[facility] Discharge Summary Discharge Summary DATE OF ADMISSION: Nov 02, 2020 at 17:40 DATE OF DISCHARGE: November 09, 2020 at 0752 DISCHARGE DIAGNOSES: 1. Major depressive disorder, recurrent. 2. Panic disorder without agoraphobia. 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 Was admitted because of severe depression and suicide attempt pf an overdose. Stated, : "I had a lot of stress, and I thought of hurting myself." Patient was admitted to the hospital a month ago for suicide attempt by overdose of pills. After the discharge, patient was well for a while and again got severely depressed and attempted suicide by overdosing on hydroxyzine 10 mg, tra zodone 50 mg, and Escitalopram 10 mg. All the bottles were empty. Before she overdosed on pills she drank alcohol. She was found lying in her own vomitus. After she was brought to the hospital, she was intubated for respiratory depression, and after she was stabilized she was transferred to inpatient mental health unit ([facility]). During my evaluation, she reported that she is going through a lot of stress. Patient has family issues. They have psychiatric problems and alcohol issues, and she reports she has social issues. She is adequate with her friends. She also had relationship problem. She broke up with a boyfriend. It was devastating, as that was her first relationship, which happened a month ago. She had a history of depression about 2 years ago, which increased a couple of months ago, and recently for a week she was contemplating, and on that day after drinking alcohol she attempted suicide. Her sleep is poor. Her energy is low. She feels worthless, helpless, and hopeless. Currently denies suicidal thoughts. Denies any history of tiffanie. Patient has a history of panic attacks without agoraphobia. Denies any history of manic episodes or psychosis. 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 she reports that she drinks alcohol, occasionally but she drank that day because she was already contemplating to overdose. Reports feeling depressed for several months, she was feeling hopeless and helpless, she has been under pressure (work) and reports problems with her social life. She is from [place], she feels lonely but she says she has a support network. She says she is not suicidal at this time, but she admits to to feel depressed and regrets having done what she did. Per Old ER Chart 09/18/20: Pt was referred to ED after pt presented to [facility] walk in hours and expressed SI with plan to OD on medication. Pt states, "I have nothing to live for anymore and I'm just done with life." Pt reports struggling with suicidal thoughts for the past few weeks with plan to "OD or something." Suicidal triggers include recent break up with boyfriend about 3 wks ago. States she's extremely lonely and has been self-medicating with ETOH. Early this morning, she reports getting pulled over while intoxicated and was arrested for a DUI and an "open container." Pt states, "my life is over and I want to kill myself." She continues to voice SI with plan to OD on medication. States she has attempted suicide in the past by OD and was hospitalized in [place] VITAL SIGNS: See below. 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 Was admitted because of severe depression and suicide attempt pf an overdose. Stated, : "I had a lot of stress, and I thought of hurting myself." Patient was admitted to the hospital a month ago for suicide attempt by overdose of pills. After the discharge, patient was well for a while and again got severely depressed and attempted suicide by overdosing on hydroxyzine 10 mg, trazodone 50 mg, and Escitalopram 10 mg. All the bottles were empty. Before she overdosed on pills she drank alcohol. She was found lying in her own vomitus. After she was brought to the hospital, she was intubated for respiratory depression, and after she was stabilized she was transferred to inpatient mental health unit (IM). Patient was admitted to [facility] on legal status and was started on Effexor 37.5 mg and Seroquel 25 mg at . Patient was disengaged in treatment and was often superficial. She initially reported that much of her anxiety stemmed from being hospitalized and that it was exacerbating her depression. In attempts to talk about treatment planning and focus on medications, she was guarded and withdrawn often superficial. Had the patient had a few more days Effexor could have been increased to 75 mg but patient was both detached and wanted to participate in her own treatment. She had stated, "I am sick of telling my story over and over to a bunch of different people" and that she did not feel she was receiving any help here, but remained withdrawn, isolative and did not participate in any of the treatment modalities including groups. When she realized that she would not be discharged from [facility] and would be transferred door [facility] door t [facility] that had been initiated by Jonelle Okeefe, she became even more irritable and disgruntled. Yesterday, she was displeased that her day pass was only 4 hours and demanded another 2 hours to be added to the order. Much of her behaviors in the individual sessions was superficial and she was often annoyed in the sessions. I reinforced with her that the [facility] facility may be a place where she may benefit as she will be among her peers with probably similar issues. She did not appear to be satisfied. Patient is being picked up by [employer] this morning and taken to the airport for her flight to [place]. DISCHARGE ASSESSMENT: In today's interview, patient is alert and oriented, pt's dress is appropriate. Hygiene and grooming is well-kempt. Denies depression and anxiety, but she appears to be minimizing this. Denies suicidal and homicidal ideation, planning or intent. Denies and is not observed with tiffanie, psychotic symptoms of delusions, bizarre thinking, obsessions, paranoia, ruminations illogical thoughts, flight of ideas or having poor insight and judgement. 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 Was admitted because of severe depression and suicide attempt. Stated, : "I had a lot of stress, and I thought of hurting myself." Speech: Is fluid, conversant, normal rate, tone and volume Language skills are intact Thought processes including: linear and goal oriented Thought content: denies depression and anxiety, but she appears to be depressed and anxious. Denies suicidal/homicidal ideation, planning or intent, but she is often superficial. Abstract reasoning, and computation: fair Description of associations: denies, none observed Description of abnormal or psychotic thoughts: denies, none observed. Judgment: fair Insight: fair Orientation: alert and oriented to person, place, time and situation Recent and remote memory: intact Attention span and concentration: good Language: expansive Fund of knowledge: average Mood: Depressed/Irritable Mood Affect: Constricted MEDICATIONS ON DISCHARGE: See Medication Reconciliation PLAN/FOLLOWUP ARRANGEMENTS: [facility] - per Chain of Command recommendations The amount of time spent in the coordination of care for this patient was approximately 25 minutes. ETOH/Disorder Med Rx ETOH/DRUG DISORDER RX: N/A Vital Signs/I&Os Vital Signs Date Time Temp Pulse Resp B/P (MAP) Pulse Ox O2 Delivery O2 Flow Rate FiO2 11/09/20 06:23 98.0 85 16 90/57 (68) 96 Room Air Medications Scheduled Ethinyl Estradiol/Drospirenone (Enedina 28 Tablet) 1 Each Tablet, 1 TAB PO DAILY, (Reported) Quetiapine Fumarate (Quetiapine Fumarate) 25 Mg Tablet, 25 MG PO QHS for Mood, #7 Venlafaxine HCl (Venlafaxine HCl ER) 37.5 Mg Cap.er.24h, 37.5 MG PO DAILY for Mood, #7 Allergies Coded Allergies: No Known Allergies (Unverified , 09/18/20) ANTHONY MCLAUGHLIN NP Nov 09, 2020 07:58
== END 2020-11-09 08:17 | DRG 885 ==
LOC: M PSY 17:40
PROVIDERS: ADMIT Psychiatry & Neurology Psychiatry; ATTEND Psychiatry & Neurology Psychiatry
DX: F33.2 Major depressive disorder, recurrent severe without psychotic features (principal); F41.0 Panic disorder [episodic paroxysmal anxiety]; Z91.5 Personal history of self-harm; Z63.0 Problems in relationship with spouse or partner; Z79.899 Other long term (current) drug therapy; Z81.1 Family history of alcohol abuse and dependence; Z81.8 Family history of other mental and behavioral disorders

== ENCOUNTER → 2021-03-21 | Outpatient (REF) ==
[~2021-03-21] MED LIST changes: +QUET1TAB17 PO; +VENL37.598 PO
--- NOTE | 2021-03-21 09:59 | REP ---
INDICATION: SOB COMPARISON: 10/31/2020 TECHNIQUE: PA and lateral. FINDINGS: The mediastinum and cardiac silhouette are normal. The lung anthony are clear and without acute consolidation, effusion, or pneumothorax. The skeletal structures are intact and normal. IMPRESSION: No acute cardiopulmonary process. <Electronically signed by Gaurav Morley > 03/21/21 0977
== END ==
LOC: M PLAIMG 09:31
PROVIDERS: ATTEND Internal Medicine
DX: R06.02 Shortness of breath (principal)